=== PATIENT | male | born 1940 | race Caucasian/White ===

== ENCOUNTER 2019-06-10 13:06 | Observation (INO) | payer MEDICARE, BC ==
[2019-06-10] MEDS ORDERED: Verapamil 5 MG/2 ML SDV IVPUSH ONE (13:56)
--- NOTE | 2019-06-10 14:28 | EDM.PDOC ---
ED HPI GENERAL MEDICAL PROBLEM - General Chief Complaint: Cardiovascular Problem Stated Complaint: BLOOD PRESSURE Time Seen by Provider: 06/10/19 13:40 Source of Information: Reports: Patient, Family History Limitations: Reports: No Limitations - History of Present Illness INITIAL COMMENTS - FREE TEXT/NARRATIVE: 79-year-old male who lives appear independently, heavy smoker and alcohol user with a history of hypertension. He was on antihypertensive medication up until a few months ago but stopped taking them. His daughter called him and talked to them for quite a while 3 days ago and he sounded great, today she came up to visit him and he has possible left-sided facial droop, slurred speech, confusion and profound fatigue. He also has mild shortness of breath with activity. His family thinks they have noticed more shortness of breath recently on the phone. He has no pain, he has had no recent chest pain, nausea or vomiting and does not feel any peripheral weakness of his arms or legs. He has no difficulty walking. Onset: Unknown/Unsure Associated Symptoms: Reports: Confusion, Cough (Chronic cough), Shortness of Breath (Especially with activity). Denies: Chest Pain, Fever/Chills, Headaches - Related Data Allergies Allergy/AdvReac Type Severity Reaction Status Date / Time diltiazem Allergy Cannot Verified 06/10/19 13:20 Remember Home Meds: Home Meds Cyanocobalamin (Vitamin B-12) [Vitamin B-12] 1 tab PO DAILY 06/10/19 [History] Lisinopril/Hydrochlorothiazide [Lisinopril-Hctz 20-12.5 mg Tab] 2 tab PO DAILY 06/10/19 [History] Verapamil [Verapamil SR (24 Hr)] 180 mg PO DAILY 06/10/19 [History] Past Medical History HEENT History: Reports: Impaired Vision Cardiovascular History: Reports: Hypertension Neurological History: Reports: None - Past Surgical History Head Surgeries/Procedures: Reports: None HEENT Surgical History: Reports: None Cardiovascular Surgical History: Reports: None Neurological Surgical History: Reports: Lumbar Spine Social & Family History - Tobacco Use Smoking Status *Q: Current Every Day Smoker Years of Tobacco use: 40 Packs/Tins Daily: 2 Used Tobacco, but Quit: No Second Hand Smoke Exposure: No - Caffeine Use Caffeine Use: Reports: None - Alcohol Use Days Per Week of Alcohol Use: 7 Number of Drinks Per Day: 2 Total Drinks Per Week: 14 - Recreational Drug Use Recreational Drug Use: No ED ROS GENERAL - Review of Systems Review Of Systems: See Below Constitutional: Reports: Malaise. Denies: Fever, Chills HEENT: Denies: Vision Change Respiratory: Reports: Shortness of Breath, Cough Cardiovascular: Denies: Chest Pain, Palpitations GI/Abdominal: Denies: Abdominal Pain, Nausea, Vomiting Neurological: Reports: Other (Patient has lower extremity neuropathy) Psychiatric: Reports: No Symptoms ED EXAM, GENERAL - Physical Exam Exam: See Below Exam Limited By: No Limitations General Appearance: Alert, No Apparent Distress Eye Exam: Bilateral Eye: EOMI (No jaundice) Head: Atraumatic Neck: Normal Inspection, Supple, Non-Tender Respiratory/Chest: Other (Diffuse decreased breath sounds especially in the bases bilaterally, scattered expiratory wheezes) Cardiovascular: No Murmur, Irregularly Irregular GI/Abdominal: Soft, Non-Tender Extremities: No Pedal Edema Neurological: Alert, Oriented, Other (Patient appears to have some slight left facial droop at rest with some mild dysarthria, but actively his facial muscles look symmetric. No other neurologic findings or asymmetry) Psychiatric: Normal Affect, Normal Mood Skin Exam: Warm, Dry Course - Vital Signs Last Recorded V/S: Last Vital Signs Temp 96.3 F L 06/10/19 17:52 Pulse 108 H 06/10/19 17:52 Resp 18 06/10/19 17:52 BP 128/103 H 06/10/19 17:52 Pulse Ox 92 L 06/10/19 17:52 - Orders/Labs/Meds Orders: Active Orders 24 hr Category Date Time Status EKG 12 Lead [EK] Routine Ther 06/10/19 14:25 Stop Req Medication Orders Acetaminophen (Tylenol) 650 mg PO Q4H PRN PRN Reason: Pain (Mild 1-3)/fever Albuterol (Proventil Neb Soln) 2.5 mg NEB Q4H PRN PRN Reason: Shortness Of Breath/wheezing Apixaban (Eliquis) 5 mg PO Q12H NAYE Cyanocobalamin (Vitamin B12) mcg PO DAILY NAYE Nicotine (Habitrol) 21 mg TRDERM DAILY NAYE Nicotine Polacrilex (Nicorelief) 2 mg CHEW Q1H PRN PRN Reason: Other Non-Formulary Medication (Lisinopril/Hydrochlorothiazide [Lisinopril-Hctz 20- 12.5 Mg Tab]) 2 tab PO DAILY NAYE Non-Formulary Medication (Verapamil [Verelan]) 180 mg PO DAILY NAYE Ondansetron HCl (Zofran) 4 mg IV Q4H PRN PRN Reason: Nausea/Vomiting Polyethylene Glycol (Miralax) 17 gm PO DAILY PRN PRN Reason: Constipation Sodium Chloride (Saline Flush) 10 ml FLUSH ASDIRECTED PRN PRN Reason: Keep Vein Open Labs: Laboratory Tests 06/10/19 06/10/19 06/10/19 Range/Units 13:50 13:52 13:52 WBC 8.1 (4.5-11.0) K/uL RBC 4.54 (4.30-5.90) M/uL Hgb 15.3 H (12.0-15.0) g/dL Hct 45.9 (40.0-54.0) % MCV 101 H (80-98) fL MCH 34 H (27-31) pg MCHC 33 (32-36) % Plt Count 141 L (150-400) K/uL Neut % (Auto) 80 H (36-66) % Lymph % (Auto) 7 L (24-44) % [place] % (Auto) 11 H (2-6) % Eos % (Auto) 1 L (2-4) % Baso % (Auto) 1 (0-1) % Sodium 132 L (140-148) mmol/L Potassium 4.9 (3.6-5.2) mmol/L Chloride 95 L (100-108) mmol/L Carbon Dioxide 30 (21-32) mmol/L Anion Gap 11.9 (5.0-14.0) mmol/L BUN 10 (7-18) mg/dL Creatinine 0.8 (0.8-1.3) mg/dL Est Cr Clr Drug Dosing 73.63 mL/min Estimated GFR (MDRD) > 60 (>60) Glucose 159 H (74-106) mg/dL Calcium 8.4 L (8.5-10.1) mg/dL Total Bilirubin 0.8 (0.2-1.0) mg/dL AST 28 (15-37) U/L ALT 6 L (12-78) U/L Alkaline Phosphatase 102 (46-116) U/L Troponin I 0.021 (0.000-0.056) ng/mL Total Protein 6.9 (6.4-8.2) g/dL Albumin 3.3 L (3.4-5.0) g/dL Globulin 3.6 H (2.3-3.5) g/dL Albumin/Globulin Ratio 0.9 L (1.2-2.2) Ethyl Alcohol < 3 mg/dL Meds: Medications Generic Name Dose Route Start Last Admin Trade Name Freq PRN Reason Stop Dose Admin Acetaminophen 650 mg 06/10/19 18:16 Tylenol PO Q4H PRN Pain (Mild 1-3)/fever Albuterol 2.5 mg 06/10/19 18:16 Proventil Neb Soln NEB Q4H PRN Shortness Of Breath/wheezing Apixaban 5 mg 06/10/19 18:16 Eliquis PO Q12H NAYE Cyanocobalamin mcg 06/10/19 18:16 Vitamin B12 PO DAILY NAYE Nicotine 21 mg 06/10/19 18:16 Habitrol TRDERM DAILY [facility] Nicotine Polacrilex 2 mg 06/10/19 18:16 Nicorelief CHEW Q1H PRN Other Non-Formulary Medication 2 tab 06/11/19 09:00 Lisinopril/Hydrochlorothiazide [Lisinopril-Hctz 20-12.5 Mg Tab] PO DAILY NAYE Non-Formulary Medication 180 mg 06/10/19 18:16 Verapamil [Verelan] PO DAILY NAYE Ondansetron HCl 4 mg 06/10/19 18:16 Zofran IV Q4H PRN Nausea/Vomiting Polyethylene Glycol 17 gm 06/10/19 18:16 Miralax PO DAILY PRN Constipation Sodium Chloride 10 ml 06/10/19 18:16 Saline Flush FLUSH ASDIRECTED PRN Keep Vein Open Discontinued Medications Generic Name Dose Route Start Last Admin Trade Name Freq PRN Reason Stop Dose Admin Furosemide 20 mg 06/10/19 18:16 Lasix IVPUSH 06/10/19 18:17 NOW ONE Verapamil HCl 5 mg 06/10/19 13:56 06/10/19 14:00 [place] IVPUSH 06/10/19 13:57 5 mg ONETIME ONE Administration - Re-Assessments/Exams Free Text/Narrative Re-Assessment/Exam: 06/10/19 14:27 Patient was placed on cardiac monitoring is in a rapid ventricular response atrial fibrillation at 130-140. He has no previous history of atrial fibrillation. He has continued to drink alcohol daily and smokes fairly heavily. A chest x-ray will be obtained as well as a CBC, CMP, and a head CT without contrast. IV will be started and he will be given 5 mg of IV verapamil. 06/10/19 15:12 There was fairly significant rate control with the 5 mg of verapamil, patient remained in atrial fibrillation. 06/10/19 15:59 IMPRESSION: 1. No hemorrhage or intracranial acute radiographic abnormality. 2. Chronic changes suggesting cerebral volume loss and probable chronic ischemic microvascular decreased attenuation in the central white matter. Chest x-ray findings were as follows IMPRESSION: 1. Cardiomegaly and mild perihilar alveolar opacities. Correlate with any symptoms of congestive heart failure or pulmonary edema. 2. Possible small left pleural effusion. Basilar opacity in the left base could also represent some parenchymal opacity atelectasis or pneumonia. 3. Small focal patchy irregular nodular 1.8 cm opacity in the right upper lobe. This could be superimposition of markings although would suggest a follow-up chest radiograph to evaluate for resolution or CT scan of the chest. When the son arrived he felt his dad's lower lip looked "a little swollen" but otherwise his face looked his usual baseline. Explained to the patient that with his atrial fibrillation with RVR, I do not feel comfortable with him leaving, he may have some mild congestive heart failure as well. Dr. Cruz kindly agreed to visit with the patient to discuss possible admission. Departure - Departure Time of Disposition: 17:47 Disposition: Admitted As Inpatient 67 Clinical Impression: Atrial fibrillation with RVR Congestive heart failure (CHF) Qualifiers: Heart failure type: unspecified Heart failure chronicity: unspecified Qualified Code(s): I50.9 - Heart failure, unspecified Sepsis Event Note - Evaluation Sepsis Screening Result: No Definite Risk - Focused Exam Vital Signs: Vital Signs Temp Pulse Resp BP Pulse Ox 06/10/19 17:09 103 H 24 H 134/90 06/10/19 16:06 113 H 16 145/97 H 91 L 06/10/19 15:43 114 H 19 138/90 90 L 06/10/19 15:15 104 H 20 127/82 91 L 06/10/19 14:59 106 H 27 H 135/96 H 90 L 06/10/19 14:06 110 H 26 H 139/75 90 L 06/10/19 14:01 121 H 27 H 134/93 H 93 L 06/10/19 13:36 95.2 F L 117 H 19 151/98 H 90 L 06/10/19 13:31 95.2 F L 117 H 19 151/98 H 90 L Date Exam was Performed: 06/10/19 Time Exam was Performed: 18:30 - My Orders Last 24 Hours: My Active Orders 06/10/19 14:25 EKG 12 Lead [EK] Routine - Assessment/Plan Last 24 Hours: My Active Orders 06/10/19 14:25 EKG 12 Lead [EK] Routine
--- NOTE | 2019-06-10 15:38 | CRLCT ---
INDICATION: Confusion. Facial droop and history of atrial fibrillation. TECHNIQUE: CT scan of the brain was performed without contrast. COMPARISON: No comparison. FINDINGS: Extra-axial spaces: Mildly prominent. No extra-axial hemorrhage. Ventricles: Mildly prominent. No midline shift. Brain: No intra-axial hemorrhage. No intracranial mass. Diffuse decreased attenuation in the periventricular white matter. Atherosclerotic intracranial vascular calcification. Bony calvarium: No significant abnormalities. IMPRESSION: 1. No hemorrhage or intracranial acute radiographic abnormality. 2. Chronic changes suggesting cerebral volume loss and probable chronic ischemic microvascular decreased attenuation in the central white matter. Please note that all CT scans at this facility use dose modulation, iterative reconstruction, and/or weight-based dosing when appropriate to reduce radiation dose to as low as reasonably achievable. Dictated by Jason Nichole MD @ Jun 10 2019 3:34PM Signed by Dr. Jason Nichole @ Jun 10 2019 3:37PM
--- NOTE | 2019-06-10 15:56 | CRLCR ---
INDICATION: Dyspnea. TECHNIQUE: Two-view chest. FINDINGS: Heart and mediastinum: The heart is moderately enlarged. Pulmonary vessels appear upper normal. Lungs and pleura: Some patchy perihilar alveolar opacities are present. The left costophrenic sulcus shows blunting which could be from some small amount of pleural fluid. No pneumothorax. Additional focal rounded patchy opacity in the right upper lobe overlying the right 3rd rib. Additional focal rounded patchy opacity in the right upper lobe overlying the right 3rd rib. Miscellaneous: There is increased density in the posterior hemithorax on the lateral view which is possibly related to opacity in the posterior left lower lobe or elevation of the left hemidiaphragm. Overlying EKG monitors are present. IMPRESSION: 1. Cardiomegaly and mild perihilar alveolar opacities. Correlate with any symptoms of congestive heart failure or pulmonary edema. 2. Possible small left pleural effusion. Basilar opacity in the left base could also represent some parenchymal opacity atelectasis or pneumonia. 3. Small focal patchy irregular nodular 1.8 cm opacity in the right upper lobe. This could be superimposition of markings although would suggest a follow-up chest radiograph to evaluate for resolution or CT scan of the chest. Dictated by Jason Nichole MD @ Jun 10 2019 3:51PM Signed by Dr. Jason Nichole @ Jun 10 2019 3:55PM
--- NOTE | 2019-06-10 17:36 | PCM.HP.2 ---
H&P History of Present Illness - General Date of Service: 06/10/19 Admit Problem/Dx: Admission Diagnosis/Problem Admission Diagnosis/Problem Atrial fibrillation Source of Information: Patient, Family, Provider, RN Notes Reviewed History Limitations: Reports: No Limitations - History of Present Illness Initial Comments - Free Text/Narative: Mr. Adames is a 79-year-old gentleman who is admitted to observation status through the emergency department for follow-up of facial weakness, dysarthria, weakness, and atrial fibrillation with rapid ventricular response, with underlying CHF exacerbation. He denies any significant cardiac history other than previous episodes of atrial fibrillation in the distant past, 1 of which required cardioversion. He does have a known history of COPD and continues to smoke 1 pack of cigarettes daily. He has a cumulative [id number] smoking history. He denies recent symptoms of chest pain or pressure or significant increase in shortness of breath. He does report generalized weakness over the past few days. He was unaware of rapid heart rate, when he arrived in the emergency department was in atrial fibrillation with rapid ventricular response. He denies being aware of any facial weakness or difficulty with his speech, this was noticed by family. CT scan of the head shows evidence of atrophy and microvascular disease, no acute CVA. Chest x-ray shows evidence of cardiac enlargement and pulmonary edema. There is a questionable lesion noted on chest x-ray, with recommendation for follow-up chest x-ray or CT scan for further evaluation. - Related Data Allergies/Adverse Reactions: Allergies Allergy/AdvReac Type Severity Reaction Status Date / Time diltiazem Allergy Cannot Verified 06/10/19 13:20 Remember Home Medications: Home Meds Cyanocobalamin (Vitamin B-12) [Vitamin B-12] 1 tab PO DAILY 06/10/19 [History] Lisinopril/Hydrochlorothiazide [Lisinopril-Hctz 20-12.5 mg Tab] 2 tab PO DAILY 06/10/19 [History] Verapamil [Verapamil SR (24 Hr)] 180 mg PO DAILY 06/10/19 [History] Past Medical History HEENT History: Reports: Impaired Vision Cardiovascular History: Reports: Hypertension Neurological History: Reports: None - Past Surgical History Head Surgeries/Procedures: Reports: None HEENT Surgical History: Reports: None Cardiovascular Surgical History: Reports: None Neurological Surgical History: Reports: Lumbar Spine Social & Family History - Tobacco Use Smoking Status *Q: Current Every Day Smoker Years of Tobacco use: 40 Packs/Tins Daily: 2 Used Tobacco, but Quit: No Second Hand Smoke Exposure: No - Caffeine Use Caffeine Use: Reports: None - Alcohol Use Days Per Week of Alcohol Use: 7 Number of Drinks Per Day: 2 Total Drinks Per Week: 14 - Recreational Drug Use Recreational Drug Use: No H&P Review of Systems - Review of Systems: Review Of Systems: See Below General: Reports: Malaise, Weakness, Decreased Appetite. Denies: Fever, Chills HEENT: Reports: No Symptoms Pulmonary: Reports: Shortness of Breath, Wheezing. Denies: Pleuritic Chest Pain , Cough, Sputum, Hemoptysis Cardiovascular: Reports: Dyspnea on Exertion, Edema. Denies: Chest Pain, Palpitations, Orthopnea, PND, Lightheadedness Gastrointestinal: Reports: No Symptoms Genitourinary: Reports: No Symptoms Musculoskeletal: Reports: No Symptoms Skin: Reports: No Symptoms Psychiatric: Reports: No Symptoms Neurological: Reports: No Symptoms Hematologic/Lymphatic: Reports: No Symptoms Immunologic: Reports: No Symptoms Exam - Exam Exam: See Below - Vital Signs Vital Signs: Last Vital Signs Temp 95.2 F L 06/10/19 13:36 Pulse 103 H 06/10/19 17:09 Resp 24 H 06/10/19 17:09 BP 134/90 06/10/19 17:09 Pulse Ox 91 L 06/10/19 16:06 Weight: 210 lb - Exam Quality Assessment: DVT Prophylaxis General: Alert, Oriented, Cooperative, Mild Distress HEENT: Conjunctiva Clear, Hearing Intact, Mucosa Moist & [place], Normal Nasal Septum, Posterior Pharynx Clear, Pupils Equal Neck: Supple, Trachea Midline, +2 Carotid Pulse wo Bruit Lungs: Decreased Breath Sounds, Wheezing. No: Crackles, Rales, Rhonchi, Rub Cardiovascular: Normal S1, Normal S2, Irregular Rhythm, Tachycardia. No: Systolic Murmur, Diastolic Murmur GI/Abdominal Exam: Soft, Non-Tender, No Organomegaly, No Distention Back Exam: Normal Inspection, Full Range of Motion Extremities: Non-Tender, Pedal Edema Skin: Warm, Dry, Intact Neurological: Cranial Nerves Intact, Strength Equal Bilateral, Normal Speech, Normal Tone, Sensation Intact. No: Focal Deficit Neuro Extensive - Mental Status: Alert, Oriented x3, Normal Mood/Affect, Normal Cognition, Memory Intact - Patient Data Lab Results Last 24 hrs: Laboratory Results - last 24 hr 06/10/19 06/10/19 06/10/19 Range/Units 13:50 13:52 13:52 WBC 8.1 (4.5-11.0) K/uL RBC 4.54 (4.30-5.90) M/uL Hgb 15.3 H (12.0-15.0) g/dL Hct 45.9 (40.0-54.0) % MCV 101 H (80-98) fL MCH 34 H (27-31) pg MCHC 33 (32-36) % Plt Count 141 L (150-400) K/uL Neut % (Auto) 80 H (36-66) % Lymph % (Auto) 7 L (24-44) % [place] % (Auto) 11 H (2-6) % Eos % (Auto) 1 L (2-4) % Baso % (Auto) 1 (0-1) % Sodium 132 L (140-148) mmol/L Potassium 4.9 (3.6-5.2) mmol/L Chloride 95 L (100-108) mmol/L Carbon Dioxide 30 (21-32) mmol/L Anion Gap 11.9 (5.0-14.0) mmol/L BUN 10 (7-18) mg/dL Creatinine 0.8 (0.8-1.3) mg/dL Est Cr Clr Drug Dosing 73.63 mL/min Estimated GFR (MDRD) > 60 (>60) Glucose 159 H (74-106) mg/dL Calcium 8.4 L (8.5-10.1) mg/dL Total Bilirubin 0.8 (0.2-1.0) mg/dL AST 28 (15-37) U/L ALT 6 L (12-78) U/L Alkaline Phosphatase 102 (46-116) U/L Troponin I 0.021 (0.000-0.056) ng/mL Total Protein 6.9 (6.4-8.2) g/dL Albumin 3.3 L (3.4-5.0) g/dL Globulin 3.6 H (2.3-3.5) g/dL Albumin/Globulin Ratio 0.9 L (1.2-2.2) Ethyl Alcohol < 3 mg/dL Result Diagrams: 06/10/19 13:50 06/10/19 13:52 Sepsis Event Note - Evaluation Sepsis Screening Result: No Definite Risk - Focused Exam Vital Signs: Vital Signs Temp Pulse Resp BP Pulse Ox 06/10/19 17:09 103 H 24 H 134/90 06/10/19 16:06 113 H 16 145/97 H 91 L 06/10/19 15:43 114 H 19 138/90 90 L 06/10/19 15:15 104 H 20 127/82 91 L 06/10/19 14:59 106 H 27 H 135/96 H 90 L 06/10/19 14:06 110 H 26 H 139/75 90 L 06/10/19 14:01 121 H 27 H 134/93 H 93 L 06/10/19 13:36 95.2 F L 117 H 19 151/98 H 90 L 06/10/19 13:31 95.2 F L 117 H 19 151/98 H 90 L Date Exam was Performed: 06/10/19 Time Exam was Performed: 17:29 *Q Meaningful Use (ADM) - VTE Risk Assess *Q Each Risk Factor Represents 1 Point: Obesity ( BMI > 25 kg/m2), Congestive heart failure (CHF), Abnormal Pulmonary Function (COPD) Total Score 1 Point Risk Factors: 3 Each Risk Factor Represents 2 Points: None Total Score 2 Point Risk Factors: 0 Each Risk Factor Represents 3 Points: Age 75 Years or Greater Total Score 3 Point Risk Factors: 3 Each Risk Factor Represents 5 Points: None Total Score 5 Point Risk Factors: 0 Venous Thromboembolism Risk Factor Score *Q: 6 Problem List Initiated/Reviewed/Updated: Yes Orders Last 24hrs: Active Orders 24 hr Category Date Time Status Patient Status Manage Transfer [TRANSFER] Routine ADT 06/10/19 17:17 Ordered EKG Documentation Completion [RC] ASDIRECTED Care 06/10/19 14:26 Active Resuscitation Status Routine Resus Stat 06/10/19 17:22 Ordered EKG 12 Lead [EK] Routine Ther 06/10/19 14:25 Ordered Assessment/Plan Comment:: ASSESSMENT AND PLAN ATRIAL FIBRILLATION WITH RAPID VENTRICULAR RESPONSE-he is unaware of this and also unaware of when it started. Cardioversion not an option at this point because of unknown duration of the rhythm. Calculated [id number] score is 4. We discussed options for anticoagulation and he is opted for use of Eliquis. -Resume verapamil 180 mg daily for rate control -Eliquis 5 mg p.o. twice daily -Outpatient echocardiogram -Consider cardioversion after at least 3 weeks of anticoagulation CONGESTIVE HEART FAILURE-he denies previous history of this, chest x-ray shows evidence of cardiac enlargement and pulmonary edema -Lasix 20 mg IV now -Resume LIDIA inhibitor therapy -Echo as above -Consider addition of beta-eldon to current regimen depending on rate control PULMONARY LESION NOTED ON CHEST X-RAY -CT scan of the chest for further evaluation COPD-does not currently require supplemental oxygen -Nebulizer therapy as needed MAINTENANCE ISSUES -DVT prophylaxis; current therapy with Eliquis should provide adequate DVT prophylaxis -GI prophylaxis; not indicated -Teran catheter; not indicated -Nutrition; 2 g sodium diet -Nicotine dependence; nicotine patch and gum CODE STATUS-FULL CODE ADMISSION STATUS-this patient will be admitted to observation status, expect no more than a one night hospital stay for evaluation and management of problems as outlined above. DISPOSITION-anticipate discharge to home after the hospital stay. PRIMARY CARE PROVIDER-Dr. Zaragoza - Mortality Measure Prognosis:: Good
[2019-06-10] MEDS ORDERED: Nicotine Polacrilex 2 MG Gum CHEW PRN (18:16)
[2019-06-10] MEDS ORDERED: Albuterol 0.083% 2.5 MG/3 ML Neb Soln NEB PRN (18:16)
[2019-06-10] MEDS ORDERED: Ondansetron 4 MG/2 ML SDV IV PRN (18:16)
[2019-06-10] MEDS ORDERED: Acetaminophen 325 MG Tab PO PRN (18:16)
[2019-06-10] MEDS ORDERED: Sodium Chloride 0.9% 10 ML Syringe FLUSH PRN (18:16)
[2019-06-10] MEDS ORDERED: Furosemide 40 MG/4 ML VIAL IVPUSH ONE (18:16)
[2019-06-10] MEDS ORDERED: Polyethylene Glycol 3350 Powder 17 GM Packet PO PRN (18:16)
[2019-06-10] MEDS: Nicotine 21 MG/24 Hr Patch TRDERM SCH (18:36)
[2019-06-10] MEDS: Cyanocobalamin (Vitamin B12) 1,000 MCG Tab PO SCH (19:36)
--- NOTE | 2019-06-10 19:38 | CRLCT ---
INDICATION: Evaluate abnormal chest x-ray HISTORY: Evaluate abnormal chest x-ray. COMPARISON: Chest, 2 views, 06/10/2019, [address]28 hours[address] TECHNIQUE: CT of the chest. No intravenous contrast. Coronal/sagittal reconstruction images. FINDINGS: Cardiomegaly. Moderate, non loculated, bilateral pleural effusions, left larger than right. Dense coronary artery calcifications. Main pulmonary artery is dilated to 39 mm. Consider pulmonary arterial hypertension. Ascending thoracic aorta is dilated at 44 mm. There are nonenlarged lymph nodes present in the mediastinum. None meet size criteria for pathologic enlargement. The lung windows demonstrate a spiculated opacity in the right upper lobe, posterior segment, which is noncalcified, and not cavitary. This measures 2.0 x 2.1 cm in AP and transverse dimensions, and is suspicious for bronchogenic carcinoma. Suggest pulmonary consultation, and consideration for PET-CT. There is centrilobular emphysema. There is a region of scarring in the left upper lobe on image 23, series 3. There is no pneumothorax. There is passive atelectasis adjacent to both pleural effusions. No resorptive atelectasis. Evaluation of the upper abdomen demonstrates a small amount of perihepatic ascites. The liver morphology is non cirrhotic. The spleen size is normal. There is no hydronephrosis or perinephric fluid collection. There is no pancreatic mass or pancreatic duct dilation. The bone windows demonstrate no lytic or blastic bone lesions. There is spurring throughout the endplates of the thoracic spine. The vertebral body heights are maintained on sagittal reconstruction images. The manubrium and body of the sternum are intact. IMPRESSION: 1. Spiculated opacity in the right upper lobe, posterior segment, with adjacent pleural thickening. This is seen on image 41, series 3. 2. Bronchogenic carcinoma should be considered given the suspicious morphology. 3. Pulmonary consultation and/or consideration for PET-CT is suggested. The opacity is better seen on the PA/AP view of the recent chest x-ray from today. 4. Cardiomegaly, with bilateral, non loculated pleural effusions. 5. Dense coronary artery calcifications. 6. Dilated main pulmonary artery, which suggests pulmonary arterial hypertension. 7. No thoracic lymphadenopathy by size criteria. Dictated by Mo Griffin MD @ 06/10/2019 7:36:38 PM Please note that all CT scans at this facility use dose modulation, iterative reconstruction, and/or weight-based dosing when appropriate to reduce radiation dose to as low as reasonably achievable. Dictated by: Mo Griffin MD @ 06/10/2019 19:37:21 (Electronically Signed)
[2019-06-10] MEDS: Apixaban 5 MG Tab PO SCH (21:22)
[2019-06-10] MEDS ORDERED: Lisinopril 20 MG Tab PO ONE (21:29)
[2019-06-10] MEDS ORDERED: Benzocaine/Cetylpyridinium/Menthol Lozenge MUCMEM PRN (22:17)
[2019-06-10] MEDS ORDERED: Lisinopril 10 MG Tab ONE (22:34)
[2019-06-11] MEDS ORDERED: Metoprolol Tartrate 25 MG Tab PO SCH (08:30)
[2019-06-11] MEDS ORDERED: Furosemide 20 MG/2 ML VIAL IV ONE (08:30)
[2019-06-11] MEDS ORDERED: Hydrochlorothiazide 25 MG Tab PO SCH (09:00)
[2019-06-11] MEDS ORDERED: Verapamil 180 MG Tab.ER PO SCH (09:00)
[2019-06-11] MEDS ORDERED: Non-Formulary Medication 1 Each (Lisinopril/Hydrochlorothiazide [Lisinopril-Hctz 20-12.5 M PO SCH (09:00)
[2019-06-11] MEDS ORDERED: Lisinopril 20 MG Tab PO SCH (09:00)
--- NOTE | 2019-06-11 09:57 | PCM.DCSUM1 ---
Discharge Summary - Hospital Course Brief History: Mr. Adames is a 79-year-old gentleman who was admitted through the emergency department observation status for further management of congestive heart failure and atrial fibrillation with rapid ventricular response. - Discharge Data Discharge Date: 06/11/19 Discharge Disposition: Home, Self-Care 01 Condition: Poor - Referral to Home Health Primary Care Physician: Darryl Zaragoza MD - Discharge Diagnosis/Problem(s) (1) Mass of upper lobe of right lung SNOMED Code(s): 109525527, 148455085 ICD Code: R91.8 - OTHER NONSPECIFIC ABNORMAL FINDING OF LUNG FIELD Status: Acute Current Visit: Yes (2) Hypertension SNOMED Code(s): 82269176 ICD Code: I10 - ESSENTIAL (PRIMARY) HYPERTENSION Status: Acute Current Visit: Yes (3) Atrial fibrillation with RVR SNOMED Code(s): 365749662754620 ICD Code: I48.91 - UNSPECIFIED ATRIAL FIBRILLATION Status: Acute Current Visit: Yes (4) Congestive heart failure (CHF) SNOMED Code(s): 85483184 ICD Code: I50.9 - HEART FAILURE, UNSPECIFIED Status: Acute Current Visit : Yes Qualifiers: Heart failure type: unspecified Heart failure chronicity: unspecified Qualified Code(s): I50.9 - Heart failure, unspecified - Patient Summary/Data Hospital Course: Mr. Adames is a 79-year-old gentleman who is admitted to observation status through the emergency department for follow-up of facial weakness, dysarthria, weakness, and atrial fibrillation with rapid ventricular response, with underlying CHF exacerbation. He denies any significant cardiac history other than previous episodes of atrial fibrillation in the distant past, 1 of which required cardioversion. He does have a known history of COPD and continues to smoke 1 pack of cigarettes daily. He has a cumulative [id number] smoking history. He denies recent symptoms of chest pain or pressure or significant increase in shortness of breath. He does report generalized weakness over the past few days. He was unaware of rapid heart rate, when he arrived in the emergency department was in atrial fibrillation with rapid ventricular response. He denies being aware of any facial weakness or difficulty with his speech, this was noticed by family. CT scan of the head shows evidence of atrophy and microvascular disease, no acute CVA. Chest x-ray shows evidence of cardiac enlargement and pulmonary edema. There is a questionable lesion noted on chest x-ray, with recommendation for follow-up chest x-ray or CT scan for further evaluation. He was given furosemide 20 [address] IV [address] a CT scan of the chest without contrast was ordered. CT scan of the chest did show a suspicious lesion in the right upper lobe concerning for malignancy. He had no further neurologic symptoms noted during hospitalization. Initially he was started back on his oral verapamil, but then the decision was made to start him on beta- eldon therapy because of his underlying congestive heart failure. On the morning of discharge his heart rate remained elevated, there was some improvement in peripheral edema with diuretic therapy. Mr. Adames removed his IV and got dressed, adamantly requested that he be discharged home. I did explain to him that we did not yet have his heart rate under control or adequately treated his congestive heart failure. He refused further hospitalization but will agree to outpatient evaluation and management. He will require echocardiogram as an outpatient to further evaluate his congestive failure, atrial fibrillation, and possible TIA, looking for any evidence of clots within the heart. He will also be scheduled for outpatient MRI and MRA of the brain for further evaluation of his transient speech difficulty and facial weakness. Verapamil will be discontinued and he will be started on metoprolol 50 mg twice daily. He will be on lisinopril 20 mg daily, hydrochlorothiazide will be discontinued. Furosemide 20 mg daily will be started for management of his fluid overload and congestive heart failure. We did have a discussion concerning anticoagulation, his [id number] score was calculated at 4. We discussed options for anticoagulation including warfarin versus newer agents, after discussion he will be started on Eliquis 5 mg twice daily for anticoagulation of his atrial fibrillation. Follow-up appointment will be scheduled with Dr. Zaragoza, hopefully within the next few days. BMP should be obtained at the time of follow-up appointment given his new medications and diuretic therapy. He will require further outpatient evaluation of his possible right lung mass, including biopsy and referral to oncology. Activity will be as tolerated and he is encouraged to follow a low- sodium diet. - Patient Instructions Diet: Low Sodium Activity: As Tolerated Other/Special Instructions: Schedule outpatient echocardiogram for further evaluation of CHF and atrial fibrillation. Schedule follow-up appointment with primary care provider within the next few days. BMP should be obtained at the time of follow-up appointment. MRI of the brain and MRA of the head and neck will be scheduled as an outpatient for further evaluation of transient speech difficulty and facial weakness. - Discharge Plan *PRESCRIPTION DRUG MONITORING PROGRAM REVIEWED*: Not Applicable *COPY OF PRESCRIPTION DRUG MONITORING REPORT IN PATIENT SHARMAINE: Not Applicable Prescriptions/Med Rec: Apixaban [Eliquis] 5 mg PO BID #60 tablet Furosemide [Lasix] 20 mg PO DAILY #30 tab Lisinopril [Zestril] 20 mg PO DAILY #30 tablet Metoprolol Tartrate 50 mg PO BID #60 tablet Home Medications: Home Meds Cyanocobalamin (Vitamin B-12) [Vitamin B-12] 1 tab PO DAILY 06/10/19 [History] Apixaban [Eliquis] 5 mg PO BID #60 tablet 06/11/19 [Rx] Furosemide [Lasix] 20 mg PO DAILY #30 tab 06/11/19 [Rx] Lisinopril [Zestril] 20 mg PO DAILY #30 tablet 06/11/19 [Rx] Metoprolol Tartrate 50 mg PO BID #60 tablet 06/11/19 [Rx] Referrals: Darryl Zaragoza MD [Primary Care Provider] - - Discharge Summary/Plan Comment DC Time >30 min.: No - Patient Data Vitals - Most Recent: Last Vital Signs Temp 95.3 F L 06/11/19 07:19 Pulse 128 H 06/11/19 08:59 Resp 16 06/11/19 07:19 BP 137/95 H 06/11/19 08:59 Pulse Ox 88 L 06/11/19 07:19 Weight - Most Recent: 189 lb 12.8 oz I&O - Last 24 hours: Intake & Output 06/10/19 06/11/19 06/11/19 22:59 06:59 14:59 Intake Total 240 Balance 240 Lab Results - Last 24 hrs: Laboratory Results - last 24 hr 06/10/19 06/10/19 06/10/19 Range/Units 13:50 13:52 13:52 WBC 8.1 (4.5-11.0) K/uL RBC 4.54 (4.30-5.90) M/uL Hgb 15.3 H (12.0-15.0) g/dL Hct 45.9 (40.0-54.0) % MCV 101 H (80-98) fL MCH 34 H (27-31) pg MCHC 33 (32-36) % Plt Count 141 L (150-400) K/uL Neut % (Auto) 80 H (36-66) % Lymph % (Auto) 7 L (24-44) % Kleberg % (Auto) 11 H (2-6) % Eos % (Auto) 1 L (2-4) % Baso % (Auto) 1 (0-1) % Sodium 132 L (140-148) mmol/L Potassium 4.9 (3.6-5.2) mmol/L Chloride 95 L (100-108) mmol/L Carbon Dioxide 30 (21-32) mmol/L Anion Gap 11.9 (5.0-14.0) mmol/L BUN 10 (7-18) mg/dL Creatinine 0.8 (0.8-1.3) mg/dL Est Cr Clr Drug Dosing 73.63 mL/min Estimated GFR (MDRD) > 60 (>60) Glucose 159 H (74-106) mg/dL Calcium 8.4 L (8.5-10.1) mg/dL Total Bilirubin 0.8 (0.2-1.0) mg/dL AST 28 (15-37) U/L ALT 6 L (12-78) U/L Alkaline Phosphatase 102 (46-116) U/L Troponin I 0.021 (0.000-0.056) ng/mL Total Protein 6.9 (6.4-8.2) g/dL Albumin 3.3 L (3.4-5.0) g/dL Globulin 3.6 H (2.3-3.5) g/dL Albumin/Globulin Ratio 0.9 L (1.2-2.2) Ethyl Alcohol < 3 mg/dL 06/11/19 Range/Units 04:13 WBC (4.5-11.0) K/uL RBC (4.30-5.90) M/uL Hgb (12.0-15.0) g/dL Hct (40.0-54.0) % MCV (80-98) fL MCH (27-31) pg MCHC (32-36) % Plt Count (150-400) K/uL Neut % (Auto) (36-66) % Lymph % (Auto) (24-44) % Kleberg % (Auto) (2-6) % Eos % (Auto) (2-4) % Baso % (Auto) (0-1) % Sodium 134 L (140-148) mmol/L Potassium 4.0 (3.6-5.2) mmol/L Chloride 97 L (100-108) mmol/L Carbon Dioxide 32 (21-32) mmol/L Anion Gap 9.0 (5.0-14.0) mmol/L BUN 11 (7-18) mg/dL Creatinine 0.7 L (0.8-1.3) mg/dL Est Cr Clr Drug Dosing 89.80 mL/min Estimated GFR (MDRD) > 60 (>60) Glucose 106 (74-106) mg/dL Calcium 8.4 L (8.5-10.1) mg/dL Total Bilirubin (0.2-1.0) mg/dL AST (15-37) U/L ALT (12-78) U/L Alkaline Phosphatase (46-116) U/L Troponin I (0.000-0.056) ng/mL Total Protein (6.4-8.2) g/dL Albumin (3.4-5.0) g/dL Globulin (2.3-3.5) g/dL Albumin/Globulin Ratio (1.2-2.2) Ethyl Alcohol mg/dL Med Orders - Current: Current Medications Acetaminophen (Tylenol) 650 mg PO Q4H PRN PRN Reason: Pain (Mild 1-3)/fever Albuterol (Proventil Neb Soln) 2.5 mg NEB Q4H PRN PRN Reason: Shortness Of Breath/wheezing Apixaban (Eliquis) 5 mg PO BID [facility] Last Admin: 06/10/19 21:22 Dose: 5 mg Benzocaine/Menthol (Cepacol Sore Throat) 1 lozenge MUCMEM Q2H PRN PRN Reason: Sore Throat Last Admin: 06/10/19 22:40 Dose: 1 lozenge Cyanocobalamin (Vitamin B12) 1,000 mcg PO DAILY [facility] Last Admin: 06/10/19 19:36 Dose: 1,000 mcg Hydrochlorothiazide (Hydrochlorothiazide) 25 mg PO DAILY [facility] Lisinopril (Prinivil) 40 mg PO DAILY [facility] Metoprolol Tartrate (Lopressor) 25 mg PO Q6H [facility] Last Admin: 06/11/19 08:59 Dose: 25 mg Nicotine (Habitrol) 21 mg TRDERM DAILY [facility] Last Admin: 06/10/19 18:36 Dose: Not Given Nicotine Polacrilex (Nicorelief) 2 mg CHEW Q1H PRN PRN Reason: Other Ondansetron HCl (Zofran) 4 mg IV Q4H PRN PRN Reason: Nausea/Vomiting Polyethylene Glycol (Miralax) 17 gm PO DAILY PRN PRN Reason: Constipation Last Admin: 06/10/19 18:57 Dose: 17 gm Sodium Chloride (Saline Flush) 10 ml FLUSH ASDIRECTED PRN PRN Reason: Keep Vein Open Discontinued Medications Furosemide (Lasix) 20 mg IVPUSH NOW ONE Stop: 06/10/19 18:17 Last Admin: 06/10/19 18:56 Dose: 20 mg Furosemide (Lasix) 20 mg IV NOW ONE Stop: 06/11/19 08:31 Last Admin: 06/11/19 09:34 Dose: Not Given Lisinopril (Prinivil) 20 mg PO ONETIME ONE Stop: 06/10/19 21:30 Last Admin: 06/10/19 22:39 Dose: 20 mg Lisinopril (Prinivil) Confirm Administered Dose 20 mg .ROUTE .STK-MED ONE Stop: 06/10/19 22:35 Last Admin: 06/10/19 22:40 Dose: Not Given Non-Formulary Medication (Lisinopril/Hydrochlorothiazide [Lisinopril-Hctz 20- 12.5 Mg Tab]) 2 tab PO DAILY [facility] Verapamil HCl (Calan) 5 mg IVPUSH ONETIME ONE Stop: 06/10/19 13:57 Last Admin: 06/10/19 14:00 Dose: 5 mg Verapamil HCl (Calan Sr) 180 mg PO DAILY [facility] - Exam Quality Assessment: Reports: DVT Prophylaxis General: Reports: Alert, Oriented, Mild Distress Lungs: Reports: Decreased Breath Sounds, Wheezing. Denies: Crackles, Rales, Rhonchi, Rub Cardiovascular: Reports: Irregular Rhythm, Tachycardia GI/Abdominal Exam: Soft, Non-Tender, No Organomegaly, No Distention Extremities: Non-Tender, Pedal Edema Neurological: Reports: No New Focal Deficit *Q Meaningful Use (DIS) - VTE *Q VTE Pharmacological Contraindications *Q: High INR Value
[2019-06-11] MEDS: Nicotine 21 MG/24 Hr Patch TRDERM SCH (10:26)
[2019-06-11] MEDS: Apixaban 5 MG Tab PO SCH (10:26)
[2019-06-11] MEDS: Cyanocobalamin (Vitamin B12) 1,000 MCG Tab PO SCH (10:26)
== END 2019-06-11 11:25 | disposition home or self-care (01) ==
LOC: JP.ED 13:06 → JP.MS 17:17
PROVIDERS: ADMIT Hospitalist; ATTEND Hospitalist
DX: I48.91 Unspecified atrial fibrillation (principal); I11.0 Hypertensive heart disease with heart failure; I50.9 Heart failure, unspecified; R91.1 Solitary pulmonary nodule; R91.8 Other nonspecific abnormal finding of lung field; G31.89 Other specified degenerative diseases of nervous system; F17.210 Nicotine dependence, cigarettes, uncomplicated; J44.9 Chronic obstructive pulmonary disease, unspecified; Z88.8 Allergy status to other drugs, medicaments and biological substances; Z79.899 Other long term (current) drug therapy
CPT/HCPCS: 36415; 70450; 71046; 71250; 80048; 80053; 80307; 84484; 85025; 93005; 96374; 99284; 99285; A9270; J1940; 93010; 96375; G0378; J3490

== ENCOUNTER 2019-08-15 13:26 | Inpatient (IN) | payer MEDICARE, BC ==
[2019-08-15] MEDS ORDERED: Ondansetron 4 MG/2 ML SDV IVPUSH ONE (13:56)
[2019-08-15] MEDS ORDERED: Sodium Chloride 0.9% 1,000 ML IV ONE ×2 (13:56→15:04)
--- NOTE | 2019-08-15 14:01 | EDM.PDOC ---
ED HPI GENERAL MEDICAL PROBLEM - General Chief Complaint: Cardiovascular Problem Stated Complaint: LOW BLOOD PRESSURE Time Seen by Provider: 08/15/19 13:40 Source of Information: Reports: Patient, Family History Limitations: Reports: No Limitations - History of Present Illness Onset: Gradual Duration: Week(s): (2) Worsens with: Reports: Medication (Was on diuretic medication and claims he lost 30 pounds in less than a month. Diuretic medicine was just stopped in the last several days.) - Related Data Allergies Allergy/AdvReac Type Severity Reaction Status Date / Time diltiazem Allergy Other Verified 08/15/19 14:29 Home Meds: Home Meds Cyanocobalamin (Vitamin B-12) [Vitamin B-12] 1 tab PO DAILY 06/10/19 [History] Apixaban [Eliquis] 5 mg PO BID #60 tablet 06/11/19 [Rx] Furosemide [Lasix] 20 mg PO DAILY #30 tab 06/11/19 [Rx] Metoprolol Tartrate 50 mg PO BID #60 tablet 06/11/19 [Rx] lisinopriL [Zestril] 20 mg PO DAILY #30 tablet 06/11/19 [Rx] Past Medical History HEENT History: Reports: Impaired Vision Cardiovascular History: Reports: Hypertension Neurological History: Reports: None - Past Surgical History Head Surgeries/Procedures: Reports: None HEENT Surgical History: Reports: None Cardiovascular Surgical History: Reports: None Neurological Surgical History: Reports: Lumbar Spine Social & Family History - Caffeine Use Caffeine Use: Reports: None ED ROS GENERAL - Review of Systems Review Of Systems: See Below Constitutional: Reports: Malaise, Weakness, Decreased Appetite. Denies: Fever, Diaphoresis Respiratory: Denies: Pleuritic Chest Pain, Cough Cardiovascular: Denies: Chest Pain Endocrine: Reports: Fatigue GI/Abdominal: Denies: Abdominal Pain Musculoskeletal: Denies: Neck Pain Neurological: Denies: Confusion, Headache Psychiatric: Reports: Depression Free Text/Narrative/Comment: He has absolutely no complaints of pain ED EXAM, GENERAL - Physical Exam Exam: See Below Exam Limited By: No Limitations General Appearance: Alert, Mild Distress Ears: Normal External Exam Nose: Other (Dry mucous membranes) Throat/Mouth: Normal Inspection Head: Atraumatic, Normocephalic Neck: Normal Inspection, Non-Tender Respiratory/Chest: No Respiratory Distress, Lungs Clear, Normal Breath Sounds Cardiovascular: Normal Peripheral Pulses, Regular Rate, Rhythm, No Edema GI/Abdominal: Soft, Non-Tender Extremities: Normal Inspection, Normal Range of Motion Skin Exam: Dry, Other (Especially lower extremities are flaking ) EKG INTERPRETATION EKG Date: 08/15/19 Time: 14:00 Rhythm: A-Fib Rate (Beats/Min): 84 QRS: Other (Occasional PVC) ST-T: Normal Course - Vital Signs Text/Narrative:: Differential diagnosis: Dehydration, electrolyte abnormality, occult infection, myocardial infarction. Patient was given 1 L IV fluid bolus here. Discussed the patient with our hospitalist and patient will have blood cultures and pro calcitonin drawn prior to admission Last Recorded V/S: Last Vital Signs Temp 35.0 C L 08/15/19 14:10 Pulse 88 08/15/19 14:10 Resp 18 08/15/19 14:10 BP 140/121 H 08/15/19 14:10 Pulse Ox 96 08/15/19 14:10 - Orders/Labs/Meds Orders: Active Orders 24 hr Category Date Time Status EKG Documentation Completion [RC] ASDIRECTED Care 08/15/19 13:55 Active Chest 1V Frontal [CR] Stat Exams 08/15/19 13:54 Ordered CULTURE BLOOD [BC] Urgent Lab 08/15/19 14:31 Ordered CULTURE BLOOD [BC] Urgent Lab 08/15/19 14:31 Ordered PROCALCITONIN [CHEM] Routine Lab 08/15/19 14:33 Ordered UA W/MICROSCOPIC [URIN] Urgent Lab 08/15/19 13:54 Ordered Sodium Chloride 0.9% [Normal Saline] 1,000 ml Med 08/15/19 13:56 Active IV .BOLUS Blood Culture x2 Reflex Set [OM.PC] Urgent Oth 08/15/19 14:31 Ordered EKG 12 Lead [EK] Urgent Ther 08/15/19 13:54 Ordered Medication Orders Sodium Chloride (Normal Saline) 1,000 mls @ 999 mls/hr IV .BOLUS ONE Stop: 08/15/19 14:56 Labs: Laboratory Tests 08/15/19 08/15/19 08/15/19 Range/Units 13:54 14:00 14:00 WBC 15.2 H (4.5-11.0) K/uL RBC 5.40 (4.30-5.90) M/uL Hgb 17.0 H (12.0-15.0) g/dL Hct 47.7 (40.0-54.0) % MCV 88 (80-98) fL MCH 32 H (27-31) pg MCHC 36 (32-36) % Plt Count 152 (150-400) K/uL PT 13.3 H (9.5-12.0) sec INR 1.25 H (0.80-1.20) Sodium (140-148) mmol/L Potassium (3.6-5.2) mmol/L Chloride (100-108) mmol/L Carbon Dioxide (21-32) mmol/L Anion Gap (5.0-14.0) mmol/L BUN (7-18) mg/dL Creatinine (0.8-1.3) mg/dL Est Cr Clr Drug Dosing mL/min Estimated GFR (MDRD) (>60) Glucose (74-106) mg/dL Lactic Acid (0.4-2.0) mmol/L Calcium (8.5-10.1) mg/dL Total Bilirubin (0.2-1.0) mg/dL AST (15-37) U/L ALT (12-78) U/L Alkaline Phosphatase (46-116) U/L Troponin I < 0.017 (0.000-0.056) ng/mL NT-Pro-B Natriuret Pep (5-450) pg/mL Total Protein (6.4-8.2) g/dL Albumin (3.4-5.0) g/dL Globulin (2.3-3.5) g/dL Albumin/Globulin Ratio (1.2-2.2) 08/15/19 08/15/19 Range/Units 14:00 14:00 WBC (4.5-11.0) K/uL RBC (4.30-5.90) M/uL Hgb (12.0-15.0) g/dL Hct (40.0-54.0) % MCV (80-98) fL MCH (27-31) pg MCHC (32-36) % Plt Count (150-400) K/uL PT (9.5-12.0) sec INR (0.80-1.20) Sodium 129 L (140-148) mmol/L Potassium 3.4 L (3.6-5.2) mmol/L Chloride 89 L (100-108) mmol/L Carbon Dioxide 32 (21-32) mmol/L Anion Gap 11.4 (5.0-14.0) mmol/L BUN 93 H* D (7-18) mg/dL Creatinine 2.3 H D (0.8-1.3) mg/dL Est Cr Clr Drug Dosing 27.33 mL/min Estimated GFR (MDRD) 28 L (>60) Glucose 173 H (74-106) mg/dL Lactic Acid 2.2 H (0.4-2.0) mmol/L Calcium 8.7 (8.5-10.1) mg/dL Total Bilirubin 1.1 H (0.2-1.0) mg/dL AST 22 (15-37) U/L ALT 26 D (12-78) U/L Alkaline Phosphatase 87 (46-116) U/L Troponin I (0.000-0.056) ng/mL NT-Pro-B Natriuret Pep 2876 H (5-450) pg/mL Total Protein 7.5 (6.4-8.2) g/dL Albumin 3.3 L (3.4-5.0) g/dL Globulin 4.2 H (2.3-3.5) g/dL Albumin/Globulin Ratio 0.8 L (1.2-2.2) Meds: Medications Generic Name Dose Route Start Last Admin Trade Name Freq PRN Reason Stop Dose Admin Sodium Chloride 1,000 mls @ 999 mls/hr 08/15/19 13:56 Normal Saline IV 08/15/19 14:56 .BOLUS ONE Discontinued Medications Generic Name Dose Route Start Last Admin Trade Name Freq PRN Reason Stop Dose Admin Ondansetron HCl 4 mg 08/15/19 13:56 Zofran IVPUSH 08/15/19 13:57 ONETIME ONE Departure - Departure Time of Disposition: 14:36 Disposition: Admitted As Inpatient 67 Clinical Impression: Hypotension, Dehydration, Acute prerenal azotemia Referrals: Darryl Zaragoza MD [Primary Care Provider] - Forms: ED Department Discharge Sepsis Event Note (ED) - Focused Exam Vital Signs: Vital Signs Temp Pulse Resp BP Pulse Ox 08/15/19 14:10 35.0 C L 88 18 140/121 H 96 08/15/19 13:36 35.0 C L 88 18 140/121 H 96 - My Orders Last 24 Hours: My Active Orders 08/15/19 13:54 Chest 1V Frontal [CR] Stat UA W/MICROSCOPIC [URIN] Urgent EKG 12 Lead [EK] Urgent 08/15/19 13:55 EKG Documentation Completion [RC] ASDIRECTED 08/15/19 13:56 Sodium Chloride 0.9% [Normal Saline] 1,000 ml IV .BOLUS 08/15/19 14:31 CULTURE BLOOD [BC] Urgent CULTURE BLOOD [BC] Urgent Blood Culture x2 Reflex Set [OM.PC] Urgent 08/15/19 14:33 PROCALCITONIN [CHEM] Routine - Assessment/Plan Last 24 Hours: My Active Orders 08/15/19 13:54 Chest 1V Frontal [CR] Stat UA W/MICROSCOPIC [URIN] Urgent EKG 12 Lead [EK] Urgent 08/15/19 13:55 EKG Documentation Completion [RC] ASDIRECTED 08/15/19 13:56 Sodium Chloride 0.9% [Normal Saline] 1,000 ml IV .BOLUS 08/15/19 14:31 CULTURE BLOOD [BC] Urgent CULTURE BLOOD [BC] Urgent Blood Culture x2 Reflex Set [OM.PC] Urgent 08/15/19 14:33 PROCALCITONIN [CHEM] Routine
--- NOTE | 2019-08-15 15:08 | PCM.HP.2 ---
H&P History of Present Illness - General Date of Service: 08/15/19 Admit Problem/Dx: Admission Diagnosis/Problem Admission Diagnosis/Problem Acute kidney injury Source of Information: Patient, Family, Old Records, Provider, RN Notes Reviewed History Limitations: Reports: No Limitations - History of Present Illness Initial Comments - Free Text/Narative: Mr. Adames is a 79-year-old gentleman who was admitted through the emergency department for further evaluation and management of hypotension, dehydration, and acute kidney injury. Mr. Adames has a known history of coronary artery disease, estimated systolic ejection fraction from echocardiogram in May was 30 to 35%. He is also been recently diagnosed with lung carcinoma and completed a recent course of radiation therapy. Over the past few weeks he has become progressively more weak and lightheaded with standing. On evaluation in the emergency department his creatinine is significantly elevated from baseline qualifying is acute kidney injury. There is no evidence of underlying infection although his white blood cell count is elevated at 15,000. Procalcitonin was well within normal range making infection much less likely. He denies any recent symptoms of chest pain or pressure and also denies shortness of breath. - Related Data Allergies/Adverse Reactions: Allergies Allergy/AdvReac Type Severity Reaction Status Date / Time No Known Allergies Allergy Verified 08/15/19 16:17 Home Medications: Home Meds Cyanocobalamin (Vitamin B-12) [Vitamin B-12] 1 tab PO DAILY 06/10/19 [History] Metoprolol Tartrate 50 mg PO BID #60 tablet 06/11/19 [Rx] lisinopriL [Zestril] 20 mg PO DAILY #30 tablet 06/11/19 [Rx] Apixaban [Eliquis] 5 mg PO BID 08/15/19 [History] Diltiazem IR [Cardizem] 60 mg PO BID 08/15/19 [History] Furosemide [Lasix] 80 mg PO DAILY 08/15/19 [History] levoFLOXacin [Levaquin] 500 mg PO DAILY 08/15/19 [History] metOLazone [Metolazone] 5 mg PO ASDIRECTED 08/15/19 [History] methylPREDNISolone [Methylprednisolone] 4 mg PO ASDIRECTED 08/15/19 [History] Past Medical History HEENT History: Reports: Impaired Vision Cardiovascular History: Reports: Hypertension Respiratory History: Reports: Other (See Below) Other Respiratory History: lung cancer with radiation treatments upper right lobe Gastrointestinal History: Reports: GERD Neurological History: Reports: None Oncologic (Cancer) History: Reports: Lung Other Oncologic History: 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 Denies: Fever, Chills, Malaise HEENT: Reports: No Symptoms Pulmonary: Reports: No Symptoms Cardiovascular: Reports: Dyspnea on Exertion, Lightheadedness. Denies: Chest Pain, Palpitations, Orthopnea, PND, Edema, Syncope Gastrointestinal: Reports: No Symptoms Genitourinary: Reports: No Symptoms Musculoskeletal: Reports: No Symptoms Skin: Reports: No Symptoms Psychiatric: Reports: No Symptoms Neurological: Reports: No Symptoms Hematologic/Lymphatic: Reports: No Symptoms Immunologic: Reports: No Symptoms Exam - Exam Exam: See Below - Vital Signs Vital Signs: Last Vital Signs Temp 95.0 F L 08/15/19 14:10 Pulse 72 08/15/19 14:57 Resp 16 08/15/19 14:57 BP 83/49 L 08/15/19 14:57 Pulse Ox 94 L 08/15/19 14:57 Weight: 165 lb - Exam Quality Assessment: Supplemental Oxygen, DVT Prophylaxis General: Alert, Oriented, Cooperative, Mild Distress HEENT: Conjunctiva Clear, Hearing Intact, Mucosa Moist & Garden, Normal Nasal Septum, Posterior Pharynx Clear, Pupils Equal Neck: Supple, Trachea Midline, +2 Carotid Pulse wo Bruit Lungs: Normal Respiratory Effort, Decreased Breath Sounds. No: Rales, Rhonchi, Wheezing Cardiovascular: Regular Rate, Normal S1, Normal S2, Irregular Rhythm. No: Systolic Murmur, Diastolic Murmur GI/Abdominal Exam: Soft, Non-Tender, No Organomegaly, No Distention Back Exam: Normal Inspection, Full Range of Motion Extremities: Non-Tender, No Pedal Edema Skin: Warm, Dry, Intact Neurological: Cranial Nerves Intact, Strength Equal Bilateral, Normal Speech, Normal Tone, Sensation Intact. No: Focal Deficit Neuro Extensive - Mental Status: Alert, Oriented x3, Normal Mood/Affect, Normal Cognition, Memory Intact - Patient Data Lab Results Last 24 hrs: Laboratory Results - last 24 hr 08/15/19 08/15/19 08/15/19 Range/Units 13:54 14:00 14:00 WBC 15.2 H (4.5-11.0) K/uL RBC 5.40 (4.30-5.90) M/uL Hgb 17.0 H (12.0-15.0) g/dL Hct 47.7 (40.0-54.0) % MCV 88 (80-98) fL MCH 32 H (27-31) pg MCHC 36 (32-36) % Plt Count 152 (150-400) K/uL PT 13.3 H (9.5-12.0) sec INR 1.25 H (0.80-1.20) Sodium (140-148) mmol/L Potassium (3.6-5.2) mmol/L Chloride (100-108) mmol/L Carbon Dioxide (21-32) mmol/L Anion Gap (5.0-14.0) mmol/L BUN (7-18) mg/dL Creatinine (0.8-1.3) mg/dL Est Cr Clr Drug Dosing mL/min Estimated GFR (MDRD) (>60) Glucose (74-106) mg/dL Lactic Acid (0.4-2.0) mmol/L Calcium (8.5-10.1) mg/dL Total Bilirubin (0.2-1.0) mg/dL AST (15-37) U/L ALT (12-78) U/L Alkaline Phosphatase (46-116) U/L Troponin I < 0.017 (0.000-0.056) ng/mL NT-Pro-B Natriuret Pep (5-450) pg/mL Total Protein (6.4-8.2) g/dL Albumin (3.4-5.0) g/dL Globulin (2.3-3.5) g/dL Albumin/Globulin Ratio (1.2-2.2) 08/15/19 08/15/19 Range/Units 14:00 14:00 WBC (4.5-11.0) K/uL RBC (4.30-5.90) M/uL Hgb (12.0-15.0) g/dL Hct (40.0-54.0) % MCV (80-98) fL MCH (27-31) pg MCHC (32-36) % Plt Count (150-400) K/uL PT (9.5-12.0) sec INR (0.80-1.20) Sodium 129 L (140-148) mmol/L Potassium 3.4 L (3.6-5.2) mmol/L Chloride 89 L (100-108) mmol/L Carbon Dioxide 32 (21-32) mmol/L Anion Gap 11.4 (5.0-14.0) mmol/L BUN 93 H* D (7-18) mg/dL Creatinine 2.3 H D (0.8-1.3) mg/dL Est Cr Clr Drug Dosing 27.33 mL/min Estimated GFR (MDRD) 28 L (>60) Glucose 173 H (74-106) mg/dL Lactic Acid 2.2 H (0.4-2.0) mmol/L Calcium 8.7 (8.5-10.1) mg/dL Total Bilirubin 1.1 H (0.2-1.0) mg/dL AST 22 (15-37) U/L ALT 26 D (12-78) U/L Alkaline Phosphatase 87 (46-116) U/L Troponin I (0.000-0.056) ng/mL NT-Pro-B Natriuret Pep 2876 H (5-450) pg/mL Total Protein 7.5 (6.4-8.2) g/dL Albumin 3.3 L (3.4-5.0) g/dL Globulin 4.2 H (2.3-3.5) g/dL Albumin/Globulin Ratio 0.8 L (1.2-2.2) Result Diagrams: 08/15/19 13:54 08/15/19 14:00 Sepsis Event Note - Evaluation Sepsis Screening Result: No Definite Risk - Focused Exam Vital Signs: Vital Signs Temp Pulse Resp BP Pulse Ox 08/15/19 14:57 72 16 83/49 L 94 L 08/15/19 14:20 74 14 64/30 L 95 08/15/19 14:10 95.0 F L 88 18 140/121 H 96 08/15/19 13:50 94 20 70/44 L 95 08/15/19 13:40 88 70/36 L 08/15/19 13:39 96 17 60/40 L 93 L 08/15/19 13:36 95.0 F L 88 18 140/121 H 96 Date Exam was Performed: 08/15/19 Time Exam was Performed: 17:28 *Q Meaningful Use (ADM) - VTE Risk Assess *Q Each Risk Factor Represents 1 Point: Congestive heart failure (CHF), Abnormal Pulmonary Function (COPD) Total Score 1 Point Risk Factors: 2 Each Risk Factor Represents 2 Points: Malignancy (present or previous) Total Score 2 Point Risk Factors: 2 Each Risk Factor Represents 3 Points: Age 75 Years or Greater Total Score 3 Point Risk Factors: 3 Each Risk Factor Represents 5 Points: None Total Score 5 Point Risk Factors: 0 Venous Thromboembolism Risk Factor Score *Q: 7 Problem List Initiated/Reviewed/Updated: Yes Orders Last 24hrs: Active Orders 24 hr Category Date Time Status Patient Status Manage Transfer [TRANSFER] Routine ADT 08/15/19 15:03 Ordered EKG Documentation Completion [RC] ASDIRECTED Care 08/15/19 13:55 Active Chest 1V Frontal [CR] Stat Exams 08/15/19 13:54 Taken CULTURE BLOOD [BC] Urgent Lab 08/15/19 14:48 Received CULTURE BLOOD [BC] Urgent Lab 08/15/19 14:53 Received PROCALCITONIN [CHEM] Routine Lab 08/15/19 14:33 Ordered UA W/MICROSCOPIC [URIN] Urgent Lab 08/15/19 13:54 Ordered Sodium Chloride 0.9% [Normal Saline] 1,000 ml Med 08/15/19 15:04 Active IV .BOLUS Blood Culture x2 Reflex Set [OM.PC] Urgent Oth 08/15/19 14:31 Ordered Resuscitation Status Routine Resus Stat 08/15/19 15:05 Ordered EKG 12 Lead [EK] Urgent Ther 08/15/19 13:54 Ordered Medication Orders Sodium Chloride (Normal Saline) 1,000 mls @ 999 mls/hr IV .BOLUS ONE Stop: 08/15/19 16:04 Last Admin: 08/15/19 15:06 Dose: 999 mls/hr Documented by: PREILOR Assessment/Plan Comment:: ASSESSMENT AND PLAN HYPOTENSION-likely secondary to intravascular volume depletion from diuretic therapy as well as effects of antihypertensive medications. -IV fluids for hydration -Hold diltiazem and metoprolol this evening ACUTE KIDNEY INJURY-likely secondary to dehydration and intravascular volume depletion secondary to diuretic therapy -IV fluids for hydration -Closely monitor urine output and renal function CONGESTIVE HEART FAILURE-documented decrease in left ventricular systolic function noted on echocardiogram from May of this year, estimated ejection fraction of 30 to 35%. -Continue outpatient medications -Hold diuretic therapy until renal function improves LUNG CANCER-recent diagnosis, status post radiation therapy last week MAINTENANCE ISSUES -DVT prophylaxis; current therapy with Eliquis should provide adequate DVT prophylaxis -GI prophylaxis; not indicated -Teran catheter; not indicated -Nutrition; 2 g sodium diet -Nicotine dependence; not required CODE STATUS-FULL CODE ADMISSION STATUS-patient will be admitted to inpatient status, expect at least a 2 night hospital stay for evaluation and management of problems as outlined above. At the time of this admission I do not reasonably expected evaluation and management of this problem will require more than a 96 hour hospital stay. DISPOSITION-anticipate discharge to home after the hospital stay. PRIMARY CARE PROVIDER-Dr. Zaragoza - Mortality Measure Prognosis:: Good
--- NOTE | 2019-08-15 15:58 | CR ---
CHEST: Portable 08/15/2019 2:36 PM CLINICAL HISTORY:Weakness and hypotension COMPARISON:CT chest 06/10/2019 FINDINGS: Patient has a known right upper lobe mass. It is the slightly larger and denser in the appearance of May chest x-ray. Heart is enlarged. Pulmonary vascular is normal. There are no effusions Impression: Enlarging opacity in the right upper lobe with the known right lung mass. Emphysematous changes Cardiomegaly
[2019-08-15] MEDS ORDERED: Acetaminophen 325 MG Tab PO PRN (16:07)
[2019-08-15] MEDS ORDERED: Ondansetron 4 MG/2 ML SDV IV PRN (16:07)
[2019-08-15] MEDS ORDERED: Albuterol 0.083% 2.5 MG/3 ML Neb Soln NEB PRN (16:07)
[2019-08-15] MEDS ORDERED: Sodium Chloride 0.9% 10 ML Syringe FLUSH PRN (16:07)
[2019-08-15] MEDS ORDERED: Polyethylene Glycol 3350 Powder 17 GM Packet PO PRN (16:07)
[2019-08-15] MEDS: Sodium Chloride 0.9% 1,000 ML IV SCH (16:38)
[2019-08-15] MEDS: Nicotine 21 MG/24 Hr Patch TRDERM SCH (20:30)
[2019-08-15] MEDS ORDERED: Metoprolol Tartrate 50 MG Tab PO SCH (21:00)
[2019-08-15] MEDS ORDERED: Diltiazem IR 30 MG Tab PO SCH (21:00)
[2019-08-15] MEDS: Apixaban 5 MG Tab PO SCH (21:11)
[2019-08-16] MEDS: Sodium Chloride 0.9% 1,000 ML IV SCH (00:34)
[2019-08-16] MEDS ORDERED: Potassium Chloride 20 MEQ Tab.ER PO ONE ×2 (06:10→12:00)
[2019-08-16] MEDS ORDERED: Potassium Chloride 20 MEQ, Lidocaine 1% 2 ML in Sodium Chloride 0.9% 100 ML IV SCH (06:15)
[2019-08-16] MEDS: Potassium Chloride 20 MEQ, Lidocaine 1% 2 ML in Sodium Chloride 0.9% 100 ML IV SCH ×4 (08:09→14:30)
[2019-08-16] MEDS ORDERED: Lisinopril 20 MG Tab PO SCH (09:00)
[2019-08-16] MEDS: Lisinopril 10 MG Tab PO SCH (10:01)
[2019-08-16] MEDS: Metoprolol Tartrate 25 MG Tab PO SCH ×2 (10:02→21:00)
[2019-08-16] MEDS: Apixaban 5 MG Tab PO SCH ×2 (10:03→21:03)
[2019-08-16] MEDS: Nicotine 21 MG/24 Hr Patch TRDERM SCH (10:03)
--- NOTE | 2019-08-16 10:42 | PCM.PN ---
- General Info Date of Service: 08/16/19 Subjective Update: Mr. Adames reports that he feels somewhat improved today, less lightheaded. Heart rate has trended somewhat higher after holding metoprolol and diltiazem last night. Blood pressure remains low today, he has been afebrile and otherwise stable. Functional Status: Reports: Tolerating Diet, Ambulating, Urinating - Review of Systems General: Reports: Weakness. Denies: Fever, Chills Pulmonary: Reports: No Symptoms Cardiovascular: Reports: No Symptoms Gastrointestinal: Reports: No Symptoms - Patient Data Vitals - Most Recent: Last Vital Signs Temp 95.6 F L 08/16/19 04:00 Pulse 103 H 08/16/19 10:02 Resp 17 08/16/19 08:00 BP 101/61 08/16/19 10:02 Pulse Ox 95 08/16/19 08:00 Weight - Most Recent: 165 lb I&O - Last 24 Hours: Intake & Output 08/15/19 08/16/19 08/16/19 22:59 06:59 14:59 Intake Total 364 1404 112 Output Total 1100 1850 Balance -736 -446 112 Lab Results Last 24 Hours: Laboratory Results - last 24 hr 08/15/19 08/15/19 08/15/19 Range/Units 13:54 14:00 14:00 WBC 15.2 H (4.5-11.0) K/uL RBC 5.40 (4.30-5.90) M/uL Hgb 17.0 H (12.0-15.0) g/dL Hct 47.7 (40.0-54.0) % MCV 88 (80-98) fL MCH 32 H (27-31) pg MCHC 36 (32-36) % Plt Count 152 (150-400) K/uL Neut % (Auto) (36-66) % Lymph % (Auto) (24-44) % Gaines % (Auto) (2-6) % Eos % (Auto) (2-4) % Baso % (Auto) (0-1) % PT 13.3 H (9.5-12.0) sec INR 1.25 H (0.80-1.20) Sodium (140-148) mmol/L Potassium (3.6-5.2) mmol/L Chloride (100-108) mmol/L Carbon Dioxide (21-32) mmol/L Anion Gap (5.0-14.0) mmol/L BUN (7-18) mg/dL Creatinine (0.8-1.3) mg/dL Est Cr Clr Drug Dosing mL/min Estimated GFR (MDRD) (>60) Glucose (74-106) mg/dL Lactic Acid (0.4-2.0) mmol/L Calcium (8.5-10.1) mg/dL Total Bilirubin (0.2-1.0) mg/dL AST (15-37) U/L ALT (12-78) U/L Alkaline Phosphatase (46-116) U/L Troponin I < 0.017 (0.000-0.056) ng/mL NT-Pro-B Natriuret Pep (5-450) pg/mL Total Protein (6.4-8.2) g/dL Albumin (3.4-5.0) g/dL Globulin (2.3-3.5) g/dL Albumin/Globulin Ratio (1.2-2.2) Procalcitonin ng/mL Urine Color (YELLOW) Urine Appearance (CLEAR) Urine pH (5.0-8.0) Ur Specific [place] (1.008-1.030) Urine Protein (NEGATIVE) mg/dL Urine Glucose (UA) (NEGATIVE) mg/dL Urine Ketones (NEGATIVE) mg/dL Urine Occult Blood (NEGATIVE) Urine Nitrite (NEGATIVE) Urine Bilirubin (NEGATIVE) Urine Urobilinogen (0.2-1.0) EU/dL Ur Leukocyte Esterase (NEGATIVE) Urine RBC (0-5) Urine WBC (0-5) Ur Epithelial Cells Amorphous Sediment Urine Bacteria Urine Mucus 08/15/19 08/15/19 08/15/19 Range/Units 14:00 14:00 14:33 WBC (4.5-11.0) K/uL RBC (4.30-5.90) M/uL Hgb (12.0-15.0) g/dL Hct (40.0-54.0) % MCV (80-98) fL MCH (27-31) pg MCHC (32-36) % Plt Count (150-400) K/uL Neut % (Auto) (36-66) % Lymph % (Auto) (24-44) % Gaines % (Auto) (2-6) % Eos % (Auto) (2-4) % Baso % (Auto) (0-1) % PT (9.5-12.0) sec INR (0.80-1.20) Sodium 129 L (140-148) mmol/L Potassium 3.4 L (3.6-5.2) mmol/L Chloride 89 L (100-108) mmol/L Carbon Dioxide 32 (21-32) mmol/L Anion Gap 11.4 (5.0-14.0) mmol/L BUN 93 H* D (7-18) mg/dL Creatinine 2.3 H D (0.8-1.3) mg/dL Est Cr Clr Drug Dosing 27.33 mL/min Estimated GFR (MDRD) 28 L (>60) Glucose 173 H (74-106) mg/dL Lactic Acid 2.2 H (0.4-2.0) mmol/L Calcium 8.7 (8.5-10.1) mg/dL Total Bilirubin 1.1 H (0.2-1.0) mg/dL AST 22 (15-37) U/L ALT 26 D (12-78) U/L Alkaline Phosphatase 87 (46-116) U/L Troponin I (0.000-0.056) ng/mL NT-Pro-B Natriuret Pep 2876 H (5-450) pg/mL Total Protein 7.5 (6.4-8.2) g/dL Albumin 3.3 L (3.4-5.0) g/dL Globulin 4.2 H (2.3-3.5) g/dL Albumin/Globulin Ratio 0.8 L (1.2-2.2) Procalcitonin 0.07 ng/mL Urine Color (YELLOW) Urine Appearance (CLEAR) Urine pH (5.0-8.0) Ur Specific [place] (1.008-1.030) Urine Protein (NEGATIVE) mg/dL Urine Glucose (UA) (NEGATIVE) mg/dL Urine Ketones (NEGATIVE) mg/dL Urine Occult Blood (NEGATIVE) Urine Nitrite (NEGATIVE) Urine Bilirubin (NEGATIVE) Urine Urobilinogen (0.2-1.0) EU/dL Ur Leukocyte Esterase (NEGATIVE) Urine RBC (0-5) Urine WBC (0-5) Ur Epithelial Cells Amorphous Sediment Urine Bacteria Urine Mucus 06/23/20 06/24/20 06/24/20 Range/Units 16:55 05:11 05:30 WBC 12.7 H (4.5-11.0) K/uL RBC 4.78 (4.30-5.90) M/uL Hgb 14.8 D (12.0-15.0) g/dL Hct 43.2 (40.0-54.0) % MCV 90 (80-98) fL MCH 31 (27-31) pg MCHC 34 (32-36) % Plt Count 161 (150-400) K/uL Neut % (Auto) 80 H (36-66) % Lymph % (Auto) 5 L (24-44) % Gaines % (Auto) 10 H (2-6) % Eos % (Auto) 4 (2-4) % Baso % (Auto) 1 (0-1) % PT (9.5-12.0) sec INR (0.80-1.20) Sodium 139 L (140-148) mmol/L Potassium 2.5 L* (3.6-5.2) mmol/L Chloride 99 L (100-108) mmol/L Carbon Dioxide 33 H (21-32) mmol/L Anion Gap 9.5 (5.0-14.0) mmol/L BUN 63 H (7-18) mg/dL Creatinine 1.6 H (0.8-1.3) mg/dL Est Cr Clr Drug Dosing 39.91 mL/min Estimated GFR (MDRD) 42 L (>60) Glucose 94 (74-106) mg/dL Lactic Acid (0.4-2.0) mmol/L Calcium 8.0 L (8.5-10.1) mg/dL Total Bilirubin (0.2-1.0) mg/dL AST (15-37) U/L ALT (12-78) U/L Alkaline Phosphatase (46-116) U/L Troponin I (0.000-0.056) ng/mL NT-Pro-B Natriuret Pep (5-450) pg/mL Total Protein (6.4-8.2) g/dL Albumin (3.4-5.0) g/dL Globulin (2.3-3.5) g/dL Albumin/Globulin Ratio (1.2-2.2) Procalcitonin ng/mL Urine Color Yellow (YELLOW) Urine Appearance Clear (CLEAR) Urine pH 7.0 (5.0-8.0) Ur Specific [place] 1.020 (1.008-1.030) Urine Protein Negative (NEGATIVE) mg/dL Urine Glucose (UA) Negative (NEGATIVE) mg/dL Urine Ketones Negative (NEGATIVE) mg/dL Urine Occult Blood Negative (NEGATIVE) Urine Nitrite Negative (NEGATIVE) Urine Bilirubin Negative (NEGATIVE) Urine Urobilinogen 0.2 (0.2-1.0) EU/dL Ur Leukocyte Esterase Negative (NEGATIVE) Urine RBC Not seen (0-5) Urine WBC Not seen (0-5) Ur Epithelial Cells Not seen Amorphous Sediment Not seen Urine Bacteria Not seen Urine Mucus Not seen Med Orders - Current: Current Medications Acetaminophen (Tylenol) 650 mg PO Q4H PRN PRN Reason: Pain (Mild 1-3)/fever Albuterol (Proventil Neb Soln) 2.5 mg NEB Q4H PRN PRN Reason: Shortness Of Breath/wheezing Apixaban (Eliquis) 5 mg PO BID [facility] Last Admin: 08/16/19 10:03 Dose: 5 mg Documented by: Potassium Chloride 20 meq/Lidocaine HCl 2 ml/ Sodium Chloride 112 mls @ 56 mls/hr IV Q2H [facility] Stop: 08/16/19 11:29 Last Admin: 08/16/19 10:00 Dose: 56 mls/hr Documented by: Potassium Chloride 20 meq/Lidocaine HCl 2 ml/ Sodium Chloride 112 mls @ 56 mls/hr IV Q2H [facility] Stop: 08/16/19 15:59 Lisinopril (Prinivil) 10 mg PO DAILY [facility] Last Admin: 08/16/19 10:01 Dose: 10 mg Documented by: Metoprolol Tartrate (Lopressor) 25 mg PO Q12H [facility] Last Admin: 08/16/19 10:02 Dose: 25 mg Documented by: Nicotine (Habitrol) 21 mg TRDERM DAILY [facility] Last Admin: 08/16/19 10:03 Dose: 21 mg Documented by: Ondansetron HCl (Zofran) 4 mg IV Q4H PRN PRN Reason: Nausea/Vomiting Polyethylene Glycol (Miralax) 17 gm PO DAILY PRN PRN Reason: Constipation Potassium Chloride (Klor-Con M20) 40 meq PO ONETIME ONE Stop: 08/16/19 12:01 Sodium Chloride (Saline Flush) 10 ml FLUSH ASDIRECTED PRN PRN Reason: Keep Vein Open Discontinued Medications Diltiazem HCl (Cardizem) 60 mg PO BID [facility] Sodium Chloride (Normal Saline) 1,000 mls @ 999 mls/hr IV .BOLUS ONE Stop: 08/15/19 14:56 Last Admin: 08/15/19 15:05 Dose: 999 mls/hr Documented by: Sodium Chloride (Normal Saline) 1,000 mls @ 999 mls/hr IV .BOLUS ONE Stop: 08/15/19 16:04 Last Admin: 08/15/19 15:06 Dose: 999 mls/hr Documented by: Sodium Chloride (Normal Saline) 1,000 mls @ 125 mls/hr IV ASDIRECTED [facility] Last Admin: 08/16/19 00:34 Dose: 125 mls/hr Documented by: Lisinopril (Prinivil) 20 mg PO DAILY [facility] Metoprolol Tartrate (Lopressor) 50 mg PO BID [facility] Ondansetron HCl (Zofran) 4 mg IVPUSH ONETIME ONE Stop: 08/15/19 13:57 Last Admin: 08/15/19 15:07 Dose: 4 mg Documented by: Potassium Chloride (Klor-Con M20) 40 meq PO ONETIME ONE Stop: 08/16/19 06:11 Last Admin: 08/16/19 06:42 Dose: 40 meq Documented by: - Exam Quality Assessment: DVT Prophylaxis General: Alert, Oriented, Cooperative, No Acute Distress Lungs: Clear to Auscultation, Normal Respiratory Effort, Decreased Breath Sounds Cardiovascular: Regular Rate, Regular Rhythm, No Murmurs GI/Abdominal Exam: Soft, Non-Tender, No Organomegaly, No Distention Extremities: Non-Tender, No Pedal Edema Sepsis Event Note - Evaluation Sepsis Screening Result: No Definite Risk - Focused Exam Vital Signs: Vital Signs Temp Pulse Pulse Resp BP BP Pulse Ox 08/16/19 10:02 103 H 101/61 08/16/19 10:01 101/61 08/16/19 08:00 17 91/52 L 95 08/16/19 06:00 91 15 106/53 L 08/16/19 04:00 95.6 F L 100 15 94/60 95 08/16/19 02:00 96.5 F L 86 14 101/60 95 08/16/19 00:00 98 F 97 20 93/61 98 Date Exam was Performed: 08/16/19 Time Exam was Performed: 10:39 - Problem List Review Problem List Initiated/Reviewed/Updated: Yes - My Orders Last 24 Hours: My Active Orders 08/15/19 Lunch 2 Gram Sodium Diet [DIET] 08/15/19 15:05 Resuscitation Status Routine 08/15/19 16:07 Acetaminophen [Tylenol] 650 mg PO Q4H PRN Albuterol [Proventil Neb Soln] 2.5 mg NEB Q4H PRN Ondansetron [Zofran] 4 mg IV Q4H PRN Sodium Chloride 0.9% [Saline Flush] 10 ml FLUSH ASDIRECTED PRN polyethylene glycoL 3350 [MiraLAX] 17 gm PO DAILY PRN 08/15/19 16:07 Patient Status [ADT] Routine Ambulate [RC] QID Cardiac Monitoring [RC] .As Directed Height and Weight [RC] DAILY Intake and Output [RC] QSHIFT Notify Provider Vital Signs [RC] ASDIRECTED Oxygen Therapy [RC] PRN Peripheral IV Care [RC] . DIRECTED RT Aerosol Therapy [RC] ASDIRECTED Up With Assistance [RC] ASDIRECTED Up to Chair [RC] QID VTE/DVT Education [RC] Per Unit Routine Vital Signs [RC] Q2H Peripheral IV Insertion Adult [OM.PC] Routine VTE Pharmacological Contraindications [AST] Per Unit Routine 08/15/19 20:30 Nicotine [Habitrol] 21 mg TRDERM DAILY 08/15/19 21:00 Apixaban [Eliquis] 5 mg PO BID 08/16/19 07:30 Potassium Chloride 20 meq Lidocaine 1% [Xylocaine 1%] 2 ml Sodium Chloride 0.9% [Normal Saline] 100 ml IV Q2H 08/16/19 09:30 Metoprolol Tartrate [Lopressor] 25 mg PO Q12H Convert IV to Saline Lock [OM.PC] Routine 08/16/19 10:00 lisinopriL [Prinivil] 10 mg PO DAILY 08/16/19 10:45 Diltiazem IR [Cardizem] 30 mg PO Q12HR 08/16/19 12:00 Potassium Chloride 20 meq Lidocaine 1% [Xylocaine 1%] 2 ml Sodium Chloride 0.9% [Normal Saline] 100 ml IV Q2H Potassium Chloride [Klor-Con M20] 40 meq PO ONETIME ONE - Plan Plan:: ASSESSMENT AND PLAN HYPOTENSION-likely secondary to intravascular volume depletion from diuretic therapy as well as effects of antihypertensive medications. Pressure improved but remains somewhat low. -Saline lock IV ACUTE KIDNEY INJURY-likely secondary to dehydration and intravascular volume depletion secondary to diuretic therapy. Renal function has improved from yesterday with IV hydration -IV fluids for hydration -Closely monitor urine output and renal function -Continue to hold diuretic therapy CONGESTIVE HEART FAILURE-documented decrease in left ventricular systolic function noted on echocardiogram from May of this year, estimated ejection fraction of 30 to 35%. -Continue outpatient medications. Plan to decrease doses of metoprolol, diltiazem, and lisinopril. -Hold diuretic therapy until renal function improves LUNG CANCER-recent diagnosis, status post radiation therapy last week MAINTENANCE ISSUES -DVT prophylaxis; current therapy with Eliquis should provide adequate DVT prophylaxis -GI prophylaxis; not indicated -Teran catheter; not indicated -Nutrition; 2 g sodium diet -Nicotine dependence; not required CODE STATUS-FULL CODE ADMISSION STATUS-patient will be admitted to inpatient status, expect at least a 2 night hospital stay for evaluation and management of problems as outlined above. At the time of this admission I do not reasonably expected evaluation a nd management of this problem will require more than a 96 hour hospital stay. DISPOSITION-anticipate discharge to home after the hospital stay. PRIMARY CARE PROVIDER-Dr. Zaragoza
[2019-08-16] MEDS: Diltiazem IR 30 MG Tab PO SCH ×2 (11:24→21:00)
[2019-08-16] MEDS ORDERED: Potassium Chloride Riders 40 MEQ in Premix Bag 1 BAG IV ONE (12:00)
[2019-08-16] MEDS ORDERED: LORazepam 1 MG Tab PO SCH (15:45)
[2019-08-17] MEDS: Apixaban 5 MG Tab PO SCH ×2 (08:29→21:01)
[2019-08-17] MEDS: Nicotine 21 MG/24 Hr Patch TRDERM SCH (08:29)
[2019-08-17] MEDS: Diltiazem IR 30 MG Tab PO SCH (08:35)
[2019-08-17] MEDS: Metoprolol Tartrate 25 MG Tab PO SCH (08:35)
[2019-08-17] MEDS: Lisinopril 10 MG Tab PO SCH (08:35)
[2019-08-17] MEDS ORDERED: Lisinopril 10 MG Tab PO SCH (09:00)
[2019-08-17] MEDS ORDERED: Metoprolol Tartrate 25 MG Tab PO ONE (09:41)
--- NOTE | 2019-08-17 09:47 | PCM.PN ---
- General Info Date of Service: 08/17/19 Subjective Update: Mr. Adames has been fairly stable since yesterday. Heart rate is modestly elevated with changes in medication, blood pressure remains borderline. He denies significant shortness of breath or lightheadedness. Functional Status: Reports: Tolerating Diet, Ambulating, Urinating - Review of Systems General: Reports: No Symptoms Pulmonary: Reports: No Symptoms Cardiovascular: Reports: No Symptoms Gastrointestinal: Reports: No Symptoms - Patient Data Vitals - Most Recent: Last Vital Signs Temp 96.1 F L 08/17/19 04:00 Pulse 112 H 08/17/19 08:35 Resp 14 08/17/19 06:00 BP 102/61 08/17/19 08:35 Pulse Ox 96 08/17/19 04:00 Weight - Most Recent: 165 lb I&O - Last 24 Hours: Intake & Output 08/16/19 08/17/19 08/17/19 22:59 06:59 14:59 Intake Total 1557 Output Total 900 725 Balance 657 -725 Lab Results Last 24 Hours: Laboratory Results - last 24 hr 08/16/19 Range/Units 16:55 Potassium 4.7 (3.6-5.2) mmol/L [place] Results Last 24 Hours: Microbiology 08/15/19 14:48 Aerobic Blood Culture - Preliminary Blood - Arm, Right NO GROWTH AFTER 1 DAY Anaerobic Blood Culture - Preliminary NO GROWTH AFTER 1 DAY 08/15/19 14:53 Aerobic Blood Culture - Preliminary Blood - Arm, Left NO GROWTH AFTER 1 DAY Anaerobic Blood Culture - Preliminary NO GROWTH AFTER 1 DAY Med Orders - Current: Current Medications Acetaminophen (Tylenol) 650 mg PO Q4H PRN PRN Reason: Pain (Mild 1-3)/fever Albuterol (Proventil Neb Soln) 2.5 mg NEB Q4H PRN PRN Reason: Shortness Of Breath/wheezing Apixaban (Eliquis) 5 mg PO BID [facility] Last Admin: 08/17/19 08:29 Dose: 5 mg Documented by: Digoxin (Lanoxin) 250 mcg IVPUSH ONETIME ONE Stop: 08/17/19 09:42 Lorazepam (Ativan) 0 mg PO ASDIRECTED [facility]; Protocol Metoprolol Tartrate (Lopressor) 50 mg PO Q12H NAYE Nicotine (Habitrol) 21 mg TRDERM DAILY [facility] Last Admin: 08/17/19 08:29 Dose: 21 mg Documented by: Ondansetron HCl (Zofran) 4 mg IV Q4H PRN PRN Reason: Nausea/Vomiting Polyethylene Glycol (Miralax) 17 gm PO DAILY PRN PRN Reason: Constipation Sodium Chloride (Saline Flush) 10 ml FLUSH ASDIRECTED PRN PRN Reason: Keep Vein Open Discontinued Medications Diltiazem HCl (Cardizem) 60 mg PO BID [facility] Diltiazem HCl (Cardizem) 30 mg PO BID [facility] Last Admin: 08/17/19 08:35 Dose: 30 mg Documented by: Sodium Chloride (Normal Saline) 1,000 mls @ 999 mls/hr IV .BOLUS ONE Stop: 08/15/19 14:56 Last Admin: 08/15/19 15:05 Dose: 999 mls/hr Documented by: Sodium Chloride (Normal Saline) 1,000 mls @ 999 mls/hr IV .BOLUS ONE Stop: 08/15/19 16:04 Last Admin: 08/15/19 15:06 Dose: 999 mls/hr Documented by: Sodium Chloride (Normal Saline) 1,000 mls @ 125 mls/hr IV ASDIRECTED [facility] Last Admin: 08/16/19 00:34 Dose: 125 mls/hr Documented by: Potassium Chloride 20 meq/Lidocaine HCl 2 ml/ Sodium Chloride 112 mls @ 56 mls/hr IV Q2H [facility] Stop: 08/16/19 11:29 Last Admin: 08/16/19 10:00 Dose: 56 mls/hr Documented by: Potassium Chloride 20 meq/Lidocaine HCl 2 ml/ Sodium Chloride 112 mls @ 56 mls/hr IV Q2H [facility] Stop: 08/16/19 15:59 Last Admin: 08/16/19 14:30 Dose: 56 mls/hr Documented by: Lisinopril (Prinivil) 20 mg PO DAILY [facility] Last Admin: 08/16/19 10:42 Dose: Not Given Documented by: Lisinopril (Prinivil) 10 mg PO DAILY [facility] Last Admin: 08/17/19 08:35 Dose: 10 mg Documented by: Metoprolol Tartrate (Lopressor) 50 mg PO BID [facility] Metoprolol Tartrate (Lopressor) 25 mg PO Q12H [facility] Last Admin: 08/17/19 08:35 Dose: 25 mg Documented by: Ondansetron HCl (Zofran) 4 mg IVPUSH ONETIME ONE Stop: 08/15/19 13:57 Last Admin: 08/15/19 15:07 Dose: 4 mg Documented by: Potassium Chloride (Klor-Con M20) 40 meq PO ONETIME ONE Stop: 08/16/19 06:11 Last Admin: 08/16/19 06:42 Dose: 40 meq Documented by: Potassium Chloride (Klor-Con M20) 40 meq PO ONETIME ONE Stop: 08/16/19 12:01 Last Admin: 08/16/19 11:24 Dose: 40 meq Documented by: - Exam Quality Assessment: DVT Prophylaxis General: Alert, Oriented, Cooperative, No Acute Distress Lungs: Clear to Auscultation, Normal Respiratory Effort, Decreased Breath Sounds. No: Rales, Rhonchi, Wheezing Cardiovascular: Regular Rate, Regular Rhythm, No Murmurs GI/Abdominal Exam: Soft, Non-Tender, No Organomegaly, No Distention Extremities: Non-Tender, No Pedal Edema Sepsis Event Note - Evaluation Sepsis Screening Result: Severe Sepsis Risk - Focused Exam Vital Signs: Vital Signs Temp Pulse Pulse Resp BP BP Pulse Ox 08/17/19 08:35 112 H 102/61 08/17/19 06:00 107 H 14 08/17/19 04:00 96.1 F L 86 22 H 101/59 L 96 08/17/19 02:00 91 22 H 92/60 95 08/17/19 00:00 97.0 F 93 22 H 108/67 96 08/16/19 22:00 105 H 16 139/115 H 97 Date Exam was Performed: 08/17/19 Time Exam was Performed: 09:44 - Problem List Review Problem List Initiated/Reviewed/Updated: Yes - My Orders Last 24 Hours: My Active Orders 08/16/19 09:30 Convert IV to Saline Lock [OM.PC] Routine 08/16/19 15:41 CIWAA Assessment [RC] Q4H Notify Provider [RC] PRN 08/16/19 15:45 LORazepam [Ativan] See Protocol PO ASDIRECTED 08/17/19 09:41 Digoxin [Lanoxin] 250 mcg IVPUSH ONETIME ONE 08/17/19 09:41 Metoprolol Tartrate [Lopressor] 50 mg PO Q12H 08/17/19 09:43 BASIC METABOLIC PANEL,BMP [CHEM] Stat 08/18/19 05:00 BASIC METABOLIC PANEL,BMP [CHEM] Timed CBC WITH AUTO DIFF [HEME] Timed - Plan Plan:: ASSESSMENT AND PLAN HYPOTENSION-likely secondary to intravascular volume depletion from diuretic therapy as well as effects of antihypertensive medications. Pressure improved but remains somewhat low. -Saline lock IV ACUTE KIDNEY INJURY-likely secondary to dehydration and intravascular volume depletion secondary to diuretic therapy. Renal function has improved from yesterday with IV hydration -Saline lock -Closely monitor urine output and renal function -Continue to hold diuretic therapy CONGESTIVE HEART FAILURE-documented decrease in left ventricular systolic function noted on echocardiogram from May of this year, estimated ejection fraction of 30 to 35%. -Resume metoprolol at 50 mg twice daily -Hold lisinopril and diltiazem -Hold diuretic therapy until renal function improves ATRIAL FIBRILLATION WITH RAPID VENTRICULAR RESPONSE-difficult to adjust medications so that he is not hypotensive but still has good rate control of his atrial fibrillation -Metoprolol as above -Digoxin 0.25 mg IV now LUNG CANCER-recent diagnosis, status post radiation therapy last week MAINTENANCE ISSUES -DVT prophylaxis; current therapy with Eliquis should provide adequate DVT prophylaxis -GI prophylaxis; not indicated -Teran catheter; not indicated -Nutrition; 2 g sodium diet -Nicotine dependence; not required CODE STATUS-FULL CODE ADMISSION STATUS-patient will be admitted to inpatient status, expect at least a 2 night hospital stay for evaluation and management of problems as outlined above. At the time of this admission I do not reasonably expected evaluation and management of this problem will require more than a 96 hour hospital stay. DISPOSITION-anticipate discharge to home after the hospital stay. PRIMARY CARE PROVIDER-Dr. Zaragoza
[2019-08-17] MEDS ORDERED: Digoxin 500 MCG/2 ML Amp IVPUSH ONE (10:50)
[2019-08-17] MEDS ORDERED: Digoxin 125 MCG Tab PO STA (18:19)
[2019-08-17] MEDS ORDERED: Digoxin 125 MCG Tab PO ONE (21:00)
[2019-08-17] MEDS: Metoprolol Tartrate 50 MG Tab PO SCH (21:02)
[2019-08-18] MEDS ORDERED: Potassium Chloride 20 MEQ Tab.ER PO ONE (09:00)
[2019-08-18] MEDS ORDERED: Lisinopril 5 MG Tab PO SCH (09:00)
[2019-08-18] MEDS: Apixaban 5 MG Tab PO SCH (09:34)
[2019-08-18] MEDS: Nicotine 21 MG/24 Hr Patch TRDERM SCH (09:35)
[2019-08-18] MEDS: Metoprolol Tartrate 50 MG Tab PO SCH (09:35)
[2019-08-18] MEDS ORDERED: Digoxin 125 MCG Tab PO ONE (13:00)
--- NOTE | 2019-08-18 13:17 | PCM.DCSUM1 ---
Discharge Summary - Hospital Course Brief History: Mr. Admaes is an 79-year-old gentleman who was admitted through the emergency department with weakness lightheadedness and recent falls secondary to dehydration and acute kidney injury. - Discharge Data Discharge Date: 08/18/19 Discharge Disposition: Home, Self-Care 01 Condition: Fair - Referral to Home Health Primary Care Physician: Darryl Zaragoza MD - Discharge Diagnosis/Problem(s) (1) Acute kidney injury SNOMED Code(s): 27841571, 69171637 ICD Code: N17.9 - ACUTE KIDNEY FAILURE, UNSPECIFIED Status: Acute Current Visit: Yes (2) Tobacco use SNOMED Code(s): 670766831 ICD Code: Z72.0 - TOBACCO USE Status: Chronic Current Visit: No (3) Atrial fibrillation with RVR SNOMED Code(s): 783646454775247 ICD Code: I48.91 - UNSPECIFIED ATRIAL FIBRILLATION Status: Chronic Current Visit: No (4) Congestive heart failure (CHF) SNOMED Code(s): 30675105 ICD Code: I50.9 - HEART FAILURE, UNSPECIFIED Status: Chronic Current Visit: No Qualifiers: Heart failure type: unspecified Heart failure chronicity: unspecified Qualified Code(s): I50.9 - Heart failure, unspecified (5) Hypotension SNOMED Code(s): 49934848 ICD Code: I95.9 - HYPOTENSION, UNSPECIFIED Status: Acute Current Visit: Yes (6) Dehydration SNOMED Code(s): 86191446 ICD Code: E86.0 - DEHYDRATION Status: Acute Current Visit: Yes - Patient Summary/Data Hospital Course: Mr. Adames is a 79-year-old gentleman who was admitted through the emergency department for further evaluation and management of hypotension, dehydration, and acute kidney injury. Mr. Adames has a known history of coronary artery disease and congestive heart failure, estimated systolic ejection fraction from echocardiogram in May was 30 to 35%. He is also been recently diagnosed with lung carcinoma and completed a recent course of radiation therapy. Over the past few weeks he has become progressively more weak and lightheaded with standing. On evaluation in the emergency department his creatinine is significantly elevated from baseline qualifying as acute kidney injury. There is no evidence of underlying infection although his white blood cell count is elevated at 15,000. Procalcitonin was well within normal range making infection much less likely. He denies any recent symptoms of chest pain or pressure and also denies shortness of breath. On admission he was given IV fluids for hydration, metoprolol, diltiazem, and furosemide were held. Heart rate with his atrial fibrillation increased as a result of holding the metoprolol and diltiazem. Medications were adjusted during admission for control of his atrial fibrillation and to decrease hypotension. At the time of discharge he was feeling well with good rate control of his atrial fibrillation and adequate blood pressure. Diltiazem will be discontinued and he was started on digoxin 0.25 mg p.o. daily. Metoprolol dose will remain unchanged, but lisinopril was decreased to 5 mg p.o. daily. Furosemide will be decreased to 40 mg daily and metolazone will be held at this time. He is encouraged to follow a low-sodium diet, activity will be as tolerated. He has also been encouraged to stop smoking and to limit his alcohol intake. Follow-up appointment will be scheduled with his primary care provider within 1 week, BMP and digoxin level should be obtained at the time of follow-up appointment. - Patient Instructions Diet: Low Sodium Activity: As Tolerated Other/Special Instructions: Please schedule follow-up appointment with Dr. Zaragoza within 1 week. BMP and digoxin level should be obtained at the time of follow-up appointment. - Discharge Plan *PRESCRIPTION DRUG MONITORING PROGRAM REVIEWED*: Not Applicable *COPY OF PRESCRIPTION DRUG MONITORING REPORT IN PATIENT SHARMAINE: Not Applicable Prescriptions/Med Rec: Digoxin 250 mcg PO DAILY #30 tablet lisinopriL [Prinivil] 5 mg PO DAILY #30 tablet Home Medications: Home Meds Cyanocobalamin (Vitamin B-12) [Vitamin B-12] 1 tab PO DAILY 06/10/19 [History] Metoprolol Tartrate 50 mg PO BID #60 tablet 06/11/19 [Rx] Apixaban [Eliquis] 5 mg PO BID 08/15/19 [History] Digoxin 250 mcg PO DAILY #30 tablet 08/18/19 [Rx] Furosemide [Lasix] 40 mg PO DAILY #0 08/18/19 [Rx] lisinopriL [Prinivil] 5 mg PO DAILY #30 tablet 08/18/19 [Rx] Referrals: Darryl Zaragoza MD [Primary Care Provider] - 08/24/19 2:40 pm ([facility]) - Discharge Summary/Plan Comment DC Time >30 min.: No - Patient Data Vitals - Most Recent: Last Vital Signs Temp 98.7 F 08/18/19 11:00 Pulse 68 08/18/19 11:00 Resp 16 08/18/19 11:00 BP 111/71 08/18/19 11:00 Pulse Ox 95 08/18/19 11:00 Weight - Most Recent: 165 lb I&O - Last 24 hours: Intake & Output 08/17/19 08/18/19 08/18/19 22:59 06:59 14:59 Intake Total 240 Output Total 250 640 Balance -250 240 -640 Lab Results - Last 24 hrs: Laboratory Results - last 24 hr 08/18/19 08/18/19 Range/Units 04:10 04:10 WBC 10.8 (4.5-11.0) K/uL RBC 4.65 (4.30-5.90) M/uL Hgb 14.2 (12.0-15.0) g/dL Hct 43.6 (40.0-54.0) % MCV 94 (80-98) fL MCH 31 (27-31) pg MCHC 33 (32-36) % Plt Count 138 L (150-400) K/uL Neut % (Auto) 73 H (36-66) % Lymph % (Auto) 7 L (24-44) % [place] % (Auto) 13 H (2-6) % Eos % (Auto) 7 H (2-4) % Baso % (Auto) 1 (0-1) % Sodium 142 (140-148) mmol/L Potassium 3.3 L (3.6-5.2) mmol/L Chloride 103 (100-108) mmol/L Carbon Dioxide 36 H (21-32) mmol/L Anion Gap 6.3 (5.0-14.0) mmol/L BUN 29 H (7-18) mg/dL Creatinine 1.0 (0.8-1.3) mg/dL Est Cr Clr Drug Dosing 63.85 mL/min Estimated GFR (MDRD) > 60 (>60) Glucose 119 H (74-106) mg/dL Calcium 8.5 (8.5-10.1) mg/dL Digoxin 0.74 L (0.90-2.00) ng/mL [facility] Results - Last 24 hrs: Microbiology 08/15/19 14:53 Aerobic Blood Culture - Preliminary Blood - Arm, Left NO GROWTH AFTER 2 DAYS Anaerobic Blood Culture - Preliminary NO GROWTH AFTER 2 DAYS 08/15/19 14:48 Aerobic Blood Culture - Preliminary Blood - Arm, Right NO GROWTH AFTER 2 DAYS Anaerobic Blood Culture - Preliminary NO GROWTH AFTER 2 DAYS Med Orders - Current: Current Medications Acetaminophen (Tylenol) 650 mg PO Q4H PRN PRN Reason: Pain (Mild 1-3)/fever Albuterol (Proventil Neb Soln) 2.5 mg NEB Q4H PRN PRN Reason: Shortness Of Breath/wheezing Apixaban (Eliquis) 5 mg PO BID [facility] Last Admin: 08/18/19 09:34 Dose: 5 mg Documented by: Lisinopril (Prinivil) 5 mg PO DAILY [facility] Last Admin: 08/18/19 09:36 Dose: 5 mg Documented by: Lorazepam (Ativan) 0 mg PO ASDIRECTED [facility]; Protocol Metoprolol Tartrate (Lopressor) 50 mg PO BID [facility] Last Admin: 08/18/19 09:35 Dose: 50 mg Documented by: Nicotine (Habitrol) 21 mg TRDERM DAILY [facility] Last Admin: 08/18/19 09:35 Dose: 21 mg Documented by: Ondansetron HCl (Zofran) 4 mg IV Q4H PRN PRN Reason: Nausea/Vomiting Polyethylene Glycol (Miralax) 17 gm PO DAILY PRN PRN Reason: Constipation Sodium Chloride (Saline Flush) 10 ml FLUSH ASDIRECTED PRN PRN Reason: Keep Vein Open Discontinued Medications Digoxin (Lanoxin) 250 mcg IVPUSH ONETIME ONE Stop: 08/17/19 10:51 Last Admin: 08/17/19 10:41 Dose: 250 mcg Documented by: Digoxin (Lanoxin) 250 mcg PO ONETIME ONE Stop: 08/17/19 21:01 Digoxin (Lanoxin) 250 mcg PO ONETIME STA Stop: 08/17/19 18:20 Last Admin: 08/17/19 18:32 Dose: 250 mcg Documented by: Digoxin (Lanoxin) 250 mcg PO ONETIME ONE Stop: 08/18/19 13:01 Diltiazem HCl (Cardizem) 60 mg PO BID [facility] Diltiazem HCl (Cardizem) 30 mg PO BID [facility] Last Admin: 08/17/19 08:35 Dose: 30 mg Documented by: Sodium Chloride (Normal Saline) 1,000 mls @ 999 mls/hr IV .BOLUS ONE Stop: 08/15/19 14:56 Last Admin: 08/15/19 15:05 Dose: 999 mls/hr Documented by: Sodium Chloride (Normal Saline) 1,000 mls @ 999 mls/hr IV .BOLUS ONE Stop: 08/15/19 16:04 Last Admin: 08/15/19 15:06 Dose: 999 mls/hr Documented by: Sodium Chloride (Normal Saline) 1,000 mls @ 125 mls/hr IV ASDIRECTED [facility] Last Admin: 08/16/19 00:34 Dose: 125 mls/hr Documented by: Potassium Chloride 20 meq/Lidocaine HCl 2 ml/ Sodium Chloride 112 mls @ 56 mls/hr IV Q2H [facility] Stop: 08/16/19 11:29 Last Admin: 08/16/19 10:00 Dose: 56 mls/hr Documented by: Potassium Chloride 20 meq/Lidocaine HCl 2 ml/ Sodium Chloride 112 mls @ 56 mls/hr IV Q2H [facility] Stop: 08/16/19 15:59 Last Admin: 08/16/19 14:30 Dose: 56 mls/hr Documented by: Lisinopril (Prinivil) 20 mg PO DAILY [facility] Last Admin: 08/16/19 10:42 Dose: Not Given Documented by: Lisinopril (Prinivil) 10 mg PO DAILY [facility] Last Admin: 08/17/19 08:35 Dose: 10 mg Documented by: Metoprolol Tartrate (Lopressor) 50 mg PO BID [facility] Metoprolol Tartrate (Lopressor) 25 mg PO Q12H [facility] Last Admin: 08/17/19 08:35 Dose: 25 mg Documented by: Metoprolol Tartrate (Lopressor) 25 mg PO ONETIME ONE Stop: 08/17/19 09:42 Last Admin: 08/17/19 10:49 Dose: 25 mg Documented by: Ondansetron HCl (Zofran) 4 mg IVPUSH ONETIME ONE Stop: 08/15/19 13:57 Last Admin: 08/15/19 15:07 Dose: 4 mg Documented by: Potassium Chloride (Klor-Con M20) 40 meq PO ONETIME ONE Stop: 08/16/19 06:11 Last Admin: 08/16/19 06:42 Dose: 40 meq Documented by: Potassium Chloride (Klor-Con M20) 40 meq PO ONETIME ONE Stop: 08/16/19 12:01 Last Admin: 08/16/19 11:24 Dose: 40 meq Documented by: Potassium Chloride (Klor-Con M20) 40 meq PO ONETIME ONE Stop: 08/18/19 09:01 Last Admin: 08/18/19 09:39 Dose: 40 meq Documented by: - Exam Quality Assessment: Reports: DVT Prophylaxis General: Reports: Alert, Oriented, Cooperative, No Acute Distress Lungs: Reports: Clear to Auscultation, Normal Respiratory Effort Cardiovascular: Reports: Regular Rate, No Murmurs, Irregular Rhythm GI/Abdominal Exam: Soft, Non-Tender, No Organomegaly, No Distention Extremities: Non-Tender, No Pedal Edema *Q Meaningful Use (DIS) - VTE *Q VTE Pharmacological Contraindications *Q: High INR Value
== END 2019-08-18 14:00 | disposition home or self-care (01) | DRG 683 ==
LOC: JP.ED 13:26 → JP.ICU 15:03 → JP.2SS 08-17 13:16
PROVIDERS: ADMIT Hospitalist; ATTEND Hospitalist
DX: N17.9 Acute kidney failure, unspecified (principal); C34.11 Malignant neoplasm of upper lobe, right bronchus or lung; R79.89 Other specified abnormal findings of blood chemistry; I95.9 Hypotension, unspecified; I10 Essential (primary) hypertension; E86.9 Volume depletion, unspecified; E86.0 Dehydration; I48.91 Unspecified atrial fibrillation; I50.9 Heart failure, unspecified; I25.10 Atherosclerotic heart disease of native coronary artery without angina pectoris; H54.7 Unspecified visual loss; I11.0 Hypertensive heart disease with heart failure; K21.9 Gastro-esophageal reflux disease without esophagitis; F17.210 Nicotine dependence, cigarettes, uncomplicated; Z88.8 Allergy status to other drugs, medicaments and biological substances; Z79.01 Long term (current) use of anticoagulants; Z79.899 Other long term (current) drug therapy
CPT/HCPCS: 36415; 71045; 71045-26; 80048; 80053; 80162; 81001; 83605; 83880; 84132; 84145; 84484; 85025; 85027; 85610; 87040; 93005; 93010; 96361; 96374; 99285; 99285-25; A9270-GY; J1160; J2001; J2405; J3480; J7030; J7050

== ENCOUNTER 2021-09-17 13:12 | Inpatient (IN) | payer MEDICARE, BC ==
[2021-09-17] MEDS ORDERED: Lactated Ringers 1,000 ML IV SCH (13:45)
[2021-09-17] MEDS ORDERED: Sodium Chloride 0.9% 10 ML Syringe FLUSH PRN (13:49)
[2021-09-17] MEDS ORDERED: cefTRIAXone 2 GM in Sodium Chloride 0.9% 100 ML IV SCH (14:00)
[2021-09-17 15:03] LABS: ESTIMATED GFR 61 mL/min (>60)
[2021-09-17] MEDS ORDERED: Lactated Ringers 1,000 ML IV ONE (15:45)
[2021-09-17] MEDS ORDERED: Sodium Chloride 0.9% 100 ML IV ONE (16:14)
[2021-09-17] MEDS ORDERED: Sodium Chloride 0.9% 10 ML Syringe FLUSH ONE (16:14)
[2021-09-17] MEDS ORDERED: Iopamidol 755 Mg/ML 100 ML Bottle IV SCH (16:15)
[2021-09-17] MEDS ORDERED: Dexamethasone 4 MG/ML SDV IVPUSH ONE (17:40)
[2021-09-17] MEDS ORDERED: Nicotine 14 MG/24 Hr Patch TRDERM SCH (18:30)
[2021-09-17] MEDS ORDERED: Magnesium Hydroxide 400 MG/5 ML Susp 30 ML Cup PO PRN (19:29)
[2021-09-17] MEDS ORDERED: Ondansetron 4 MG/2 ML SDV IV PRN (19:29)
[2021-09-17] MEDS ORDERED: REMDESIVIR 200 MG in Sodium Chloride 0.9% 250 ML IV ONE (19:29)
[2021-09-17] MEDS ORDERED: Acetaminophen 325 MG Tab PO PRN (19:29)
[2021-09-17] MEDS ORDERED: guaiFENesin/Dextromethorphan 100-10 MG/5 ML Soln 10 ML Cup PO PRN (19:29)
[2021-09-17] MEDS ORDERED: Ondansetron 4 MG Tab.DIS PO PRN (19:29)
[2021-09-17] MEDS ORDERED: Benzonatate 100 MG Cap PO PRN (19:29)
[2021-09-17] MEDS: Apixaban 5 MG Tab PO SCH (20:35)
[2021-09-17] MEDS: Metoprolol Tartrate 50 MG Tab PO SCH (20:35)
[2021-09-17] MEDS: Melatonin 3 MG Tab PO PRN (20:35)
[2021-09-18 06:35] LABS: ESTIMATED GFR 86 mL/min (>60)
[2021-09-18] MEDS: Levothyroxine 100 MCG Tab PO SCH (08:37)
[2021-09-18] MEDS: Cyanocobalamin (Vitamin B12) 1,000 MCG Tab PO SCH (08:37)
[2021-09-18] MEDS: Levothyroxine 25 MCG Tab PO SCH (08:37)
[2021-09-18] MEDS: Apixaban 5 MG Tab PO SCH ×2 (08:37→21:06)
[2021-09-18] MEDS: Pantoprazole 40 MG Tab.CR PO SCH (08:37)
[2021-09-18] MEDS: Metoprolol Tartrate 50 MG Tab PO SCH ×2 (08:47→21:06)
[2021-09-18] MEDS ORDERED: Digoxin 125 MCG Tab PO SCH (13:00)
[2021-09-18] MEDS ORDERED: Nicotine 14 MG/24 Hr Patch TRDERM SCH (17:00)
[2021-09-18] MEDS ORDERED: REMDESIVIR 100 MG in Sodium Chloride 0.9% 100 ML IV SCH (18:00)
[2021-09-18] MEDS ORDERED: Dexamethasone 4 MG/ML SDV IVPUSH SCH (18:00)
[2021-09-18] MEDS: Melatonin 3 MG Tab PO PRN (21:07)
[2021-09-19] MEDS: Levothyroxine 100 MCG Tab PO SCH (07:30)
[2021-09-19] MEDS: Levothyroxine 25 MCG Tab PO SCH (07:30)
[2021-09-19] MEDS: Pantoprazole 40 MG Tab.CR PO SCH (07:30)
[2021-09-19] MEDS: Metoprolol Tartrate 50 MG Tab PO SCH (09:25)
[2021-09-19] MEDS: Cyanocobalamin (Vitamin B12) 1,000 MCG Tab PO SCH (09:25)
[2021-09-19] MEDS: Apixaban 5 MG Tab PO SCH (09:25)
== END 2021-09-19 11:00 | disposition home or self-care (01) | DRG 177 ==
LOC: JP.ED 13:12 → JP.MS 17:41
PROVIDERS: ADMIT Internal Medicine; ATTEND Internal Medicine
PROC: 8E0ZXY6 Isolation (ICD-10-PCS; principal; 2021-09-17)
PROC: XW033E5 Introduction of Remdesivir Anti-infective into Peripheral Vein, Percutaneous Approach, New Technology Group 5 (ICD-10-PCS; 2021-09-17)
PROC: 3E0333Z Introduction of Anti-inflammatory into Peripheral Vein, Percutaneous Approach (ICD-10-PCS; 2021-09-17)
DX: U07.1 COVID-19 (principal); J12.82 Pneumonia due to coronavirus disease 2019; J96.01 Acute respiratory failure with hypoxia; I48.20 Chronic atrial fibrillation, unspecified; C78.01 Secondary malignant neoplasm of right lung; C34.11 Malignant neoplasm of upper lobe, right bronchus or lung; Z66 Do not resuscitate; C79.9 Secondary malignant neoplasm of unspecified site; F17.210 Nicotine dependence, cigarettes, uncomplicated; J43.9 Emphysema, unspecified; I10 Essential (primary) hypertension; K21.9 Gastro-esophageal reflux disease without esophagitis; Z79.01 Long term (current) use of anticoagulants; Z79.890 Hormone replacement therapy; Z79.899 Other long term (current) drug therapy
CPT/HCPCS: 36415; 71045 ×2; 71275; 80053; 80162; 81001; 82803; 83605; 84145; 85025; 86140; 87040 ×2; 96361; 96365; 99285 ×2; J0696; J3490 ×3; J7120 ×2; Q9967; U0002; 85027; 85379; 97162-GP; 97530-GP; 99222; 99232; 99238; A9270-GY; J1100; J7050